=== PATIENT | male | born 1960 | race Caucasian/White ===

== ENCOUNTER 2021-05-24 04:35 | Inpatient (IN) | payer MEDICAID, SELFPAY ==
[2021-05-24] VITALS (8 sets, daily range): BP systolic 122–145; BP diastolic 61–75; PULSE 80–89; RESP 16–76; TEMP 36.4–37.2; O2SAT 94–98; BMI 26.9
--- NOTE | 2021-05-24 06:01 | PC.ADMIT ---
Addendum entered by My Stone R.N. 05/24/21 07:53: NOrepi has been stopped since 544, remains stable BP, Tele in place, Pt has c/o back pain. 12/07. Poor historian. NPO for swallow eval r/t previous CVA and speech difficulty. Unsure of home meds as Pt is using mail order pharmacy/blister pack. Original Note: [address] Admission Note:Pt arrived from EMS and settled into room 227, c/o back pain 12/07 BP stable 128/68 P-88 R-18 Verified emergency contact. Pt has slight tremor to R side and contracture to hand r/t previous CVA. Slight delay to speech/expressive aphasia. Norepi that Pt transferred with @ 0.3 mcg/kg/min stopped, as VSS currently. Skin check completed, bruising noted. The patient,Dionisio Nunn,60 y/o, was given written information regarding hospital policies, unit procedures and contact persons. Patient's smoking status: .
--- NOTE | 2021-05-24 07:16 | P.HP_ITS ---
History of Present Illness History of Present Illness Date Patient Seen: 05/24/21 Time Patient Seen: 06:15 Chief complaint: Seizure, direct admit from [facility] Narrative: Dionisio Nunn is a 60-year-old male resident of the [facility] who was transferred from [facility] in [place] for what was believed to be a severe sepsis and seizure. Patient is unable to give me any history of what brought him to [facility] but he was very clear about the course of action that led to why he was sent to this facility. Patient has a history of a stroke and upon reviewing medications that were preloaded into the EMR he also has hypertension, hyperlipidemia, depression and/or anxiety, probable seizure disorder and is anticoagulated on apixaban. Patient was unable to tell me if he has had a history of any surgeries. He is unable to tell me any new symptoms associated with landing in the hospital. When he arrived he was complaining of back pain. The only symptoms he was able to tell me were all chronic ones which included coughing so hard that he vomits, chronic urinary retention, and definitely not diarrhea it appears that he take stool softeners and has constipation issues. While at [facility] the patient was reportedly postictal and was adminis tered Keluisra. They placed a central line into the right IJ. The emergency room provider stated that the patient's blood pressure was normal when he arrived but then started to drop to a low systolic in the 70s. At that point he had received 3 L bolus of normal saline which he did not respond to. They started him on IV Levophed. Prior to the administration of Levophed his lactate was 9.0 and dropped to 1.2. They diagnosed him with a salmonella infection however they state they were not able to identify source, blood cultures are pending. At that time he was started on IV Zosyn and vancomycin. CT of the C-spine did not identify any acute fracture or malalignment did comment that there was multilevel intervertebral disc and facet joint degeneration. CT of the head without contrast reported old left posterior frontal infarction, old left frontal encephalomalacia extending to the corpus callosum. Did not identify any acute intracranial hemorrhage or infarction. The patient was urged requested for transfer to this facility of which I obliged. Temp was 98.4?, blood pressure 122/74, heart rate 88, respiratory rate 22, oxygen saturation of 98% on room air. Labs drawn at [facility] included a WBC of 9.0 RBC 3.97 hemoglobin 13.8 hematocrit 39.8 platelet count of a 145 sodium 133 potassium 3.5 chloride 93 CO2 24 glucose 199 BUN 7 creatinine 1.3 with a GFR of 44 albumin was 3.8 calcium 9.4 bilirubin 0.7 alk-phos 57 ALT 75 AST 98 urine toxicology screen was negative as well as his EtOH level UA was also negative for a UTI, COVID-19 PCR was negative. Patient History Medical History (Updated 05/24/21 @ 07:50 by LENARD Mccoy) Anxiety disorder Essential hypertension History of alcohol use History of CVA with residual deficit Hyperlipidemia Seizure disorder Surgical History (Updated 05/24/21 @ 07:50 by LENARD Mccoy) No history of major surgery within 1 month Family & Social History Family History (Updated 05/24/21 @ 07:52 by LENARD Mccoy) Mother Alcoholism and drug addiction in family Father Old age Tobacco & Substance use: 2-3 cigarettes per day. Patient denies active alcohol use at this time. Meds Home Medications and Allergies Home Medications Medication Instructions Recorded Confirmed Type atenolol 25 mg tablet mg 05/24/21 History atorvastatin 40 mg tablet mg 05/24/21 History buspirone 10 mg tablet 10 mg 05/24/21 History fluoxetine 10 mg capsule mg 05/24/21 History Allergies Allergy/AdvReac Type Severity Reaction Status Date / Time Penicillins Allergy Intermediate Rash Verified 05/24/21 05:57 Review of Systems Review of Systems ROS: Yes All systems reviewed with the patient and are negative except as otherwise documented Exam Vital Signs (past 8 hours): Temp was 98.4?, blood pressure 122/74, heart rate 88, respiratory rate 22, oxygen saturation of 98% on room air Narrative Exam Narrative: Gen: Alert, oriented, well-developed 60 y.o. 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 Speech slurred. Extremities: Right hand and wrist is contracted, negative Kimberli?s sign Psyche: normal mood and affect. Assessment & Plan Assessment & Plan narrative: Dionisio Nunn is accepted initially for transfer to our ICU. After reviewing the patient's med list it appears that he may have stopped using his psychotropic and seizure medications which may have triggered the seizure. He is currently changed over to inpatient status for further monitoring and resumption of his chronic medications. Attempt will be made to obtain old records from his PCP's office, Dr. Olga Cummins at [facility]. 1. Witnessed seizure acute, present on admission * Patient is ordered for both Keppra and his home dose of lamotrigine which is 200 mg p.o. b.i.d. * Patient will have seizure precautions in place * Case was discussed with the [facility] and it seems as though the patient may have discontinued the lamotrigine and his SSRIs, triggering the seizure. 2. History of a left-sided CVA with right-sided deficits, chronic, present on admission * Patient record indicates he takes atenolol 25 mg p.o. b.i.d. and lisinopril 5 mg p.o. daily. These will be resumed when he sustains a normotensive or hypertensive blood pressure * Patient is currently anticoagulated on apixaban, this should be resumed once it is verified 3. Anxiety/seizure disorder, presumed chronic * Patient's pharmacy record indicates he takes [id number] mg p.o. daily, fluoxetine 10 mg p.o. daily and lamotrigine 200 mg p.o. b.i.d. these medications will be resumed upon confirmation with his pharmacy and his PCP 4. Hypotension and sepsis presentation to the [facility] ED, appears to be resolved * It is now believed that the patient's initial presentation of hypotension and elevated lactate was due to the seizure rather than a bacterial infection. 4. Questionable recent history of alcohol withdrawal * Patient had been on a Librium course in 2019 VTE Prophylaxis: Wells risk score [0] Patient is currently anticoagulated on Apixaban. Patient is admitted to the inpatient service due to the severity of disease, risks of further disease progression and this stay is expected to exceed 2 midnights. FEN: IV fluids: NS at 150 ml/hour, diet: heart healthy, labs: CBC, C/BMP, liver enzymes, Mag, PT/INR Consultants None Dispo: Probable discharge to home Code status: Full code as discussed with the patient who identifies daughter as his her surrogate and POA. [X] I have utilized all available immediate resources to obtain, update, or review of the patient's current medications COVID-19 COVID-19 status: Negative Result date/Date tested (Pos, Neg/Pending): 05/24/21 Time Spent With Patient Critical Care time: I spent a total of [] minutes of critical care time on this patient's care today; this time is exclusive of procedural time. Scores Wells' Criteria for PE Clinical signs and symptoms of DVT: No PE is #1 Dx or equally likely: No Heart rate > 100: No Immobilization at least 3 days or surg in previous 4 weeks: No History of PE or DVT: No Hemoptysis: No Malignancy w/Treatment within 6 months or palliative: No Wells' PE Score total: 0 Quality VTE Deep Vein Thrombosis/Pulmonary Embolism Present on Admission: No MIPS - Admit I confirm the patient?s Advance Care Plan is present, Code status is documented, Surrogate decision maker is in patient?s record [If Yes, STOP here]: Yes MIPS - DC The patient has current or prior documentation of left ventricular ejection fraction (LVEF) less than 40%, or moderate or severely depressed left ventricular systolic function.: No
[2021-05-24 08:20] LABS: Lactate (Lactic Acid) 1.5 mmol/L (0.7-2.1)
[2021-05-24 08:21] LABS: BUN Creatinine Ratio 6.3 (6-22); Blood Urea Nitrogen 4 mg/dL (9-20); Calcium 8.5 mg/dL (8.4-10.2); Carbon Dioxide 25 mmol/L (22-32); Chloride 103 mmol/L (98-107); Estimated Glomerular Filt Rate > 60.0 mL/min (>60); Glucose 76 mg/dL (80-110); HEMOLYSIS 33 (0-50); Magnesium 1.3 mg/dL (1.6-2.3); Potassium 3.6 mmol/L (3.4-5.1); Sodium 134 mmol/L (137-145)
[2021-05-24 08:22] LABS: Alanine Aminotransferase 50 IU/L (<50); Albumin 3.8 g/dL (3.5-5.0); Albumin Globulin Ratio 1.7 (1.0-2.8); Alkaline Phosphatase 40 U/L (38-126); Aspartate Aminotransferase 79 IU/L (17-59); Bilirubin Unconjugated 0.9 mg/dL (0.0-1.1); Globulin 2.3 g/dL (1.7-4.1); HEMOLYSIS 30 (0-50); Total Protein 6.1 g/dL (6.3-8.2)
[2021-05-24 08:48] LABS: Add Manual Diff / Slide Review NO; Basophils Absolute Auto 0 /uL (0-100); Basophils Percent Auto 0.4 % (0-2); Eosinophils Absolute Auto 100 /uL (0-450); Eosinophils Percent Auto 1.3 % (2-4); Hematocrit 37.9 % (41-53); Hemoglobin 12.8 g/dL (13.5-17.5); Lymphocytes Absolute Auto 1300 /uL (1100-4500); Lymphocytes Percent Auto 25.7 % (25-40); Mean Corpuscular HGB Conc 33.8 % (30-36); Mean Corpuscular Hemoglobin 34.1 PG (26-34); Mean Corpuscular Volume 100.8 fL (80-100); Monocytes Absolute Auto 500 /uL (0-900); Monocytes Percent Auto 10.3 % (3-14); Neutrophils Absolute Auto 3100 /uL (1500-7000); Neutrophils Percent Auto 62.3 % (50-75); Platelet Count 102 X10^3/uL (150-400); Red Blood Cell Count 3.77 X10^6/uL (4.5-5.9); Red Cell Distribution Width 14.2 % (11.6-14.8)
[2021-05-24] MEDS: ACETAMINOPHEN 325 MG TABLET 975 MG PO (08:55)
[2021-05-24] MEDS: levETIRAcetam 250 MG TABLET 500 MG PO ×2 (08:55→20:44)
[2021-05-24 09:33] LABS: Creatine Kinase 165 U/L (55-170)
[2021-05-24 09:44] LABS: Troponin I 0.042 ng/mL (0.01-0.034)
[2021-05-24 09:48] LABS: CKMB % Relative Index 0.8 % (1.5-5.0); Creatine Kinase MB 1.27 ng/mL (<2.37)
[2021-05-24] MEDS: MAGNESIUM CHLORIDE 64 MG TABLET 128 MG PO ×2 (12:29→20:46)
--- NOTE | 2021-05-24 13:19 | PC.NURSE ---
1000- Updated Dr. Aguila of lab results. Mg of 1.3 and troponin 0.042. No new orders. 1300- Update given to Dr. Aguila: Pt is a current drinker. Consumes 6-8 beers a couple times a week per pt report. History and med rec completed based on records obtained from [facility] PCP. Requested clarification of orders for keppra BID since pt usually takes lamictal BID. Awaiting orders.
--- NOTE | 2021-05-24 15:15 | CM.DANOTE ---
Patient is a 60 yo male who was admitted on 05/24/21 for Seizure. Pt has [employer] and [employer] for insurance and his PCP is not listed. EMR was reviewed. Per MD, pt was a direct admit from [facility] for suspected seizure, sepsis and currently a poor historian. SW met bedside with pt and explained role and due to pt's medical conditions is difficult to understand at times but able to participate in discussion and alert and oriented. Pt confirms that he lives in [place] in an apt alone and has no other local family. Pt does have a HU CG and states he gets 109 hours a month which means his CG comes about 2-3 times a week to help with laundry, cleaning, cooking. Pt states he does not have her number as it's in his phone and his phone was left at home. Pt states he does not remember his fall but remembers waiting to catch public transportation as he typically takes the bus and next thing he remembers is waking up in the hospital. Pt denies any current needs and states he is feeling better but knows he will need a ride home at d/c and cannot remember his HU CM name but is agreeable to SW determining his HU CM assigned and if he has medicaid transportation benefits. SW called HU office and confirmed his HU CM is Delmy ([phone]) and she provided pt's HU CM name Miladys (sp?) [phone] and that pt or SW could call her at d/c to see if she is available to provide transport. Delmy just requests d/c summary be faxed to their office at d/c. SW called Medicaid transport and confirmed that pt has transportation benefits if needed at d/c. SW updated pt and provided him with his HU CG contact info. Pt very appreciative. Plan: SW to follow closely for d/c planning needs and possible PT eval to confirm safe plan of home with HU CG when medically stable. ZAYDA Morales Discharge Planning/Care Management CM Discharge Assessment Start: 05/24/21 15:12 Freq: Status: Active Protocol: Document 05/24/21 15:13 BF (Rec: 05/24/21 15:15 BF [id number]) Discharge Planning Assessment Assigned Branch Examiner ZAYDA Gordillo DPOA/Assigned Designee Name none Advance Directives? No Advance Directives on File No History Provided By Patient,Medical Record Has Patient been admitted in last 30 No days? Prior Living Arrangements Apartment/Condo Household Members none Type of transporation used prior to Medicaid Transport admit Independent with ADL's No Is patient alert and oriented? Yes Needs Assistance With Meal Prep,Managing Medications ,Home Chores / Shopping Caregiver for Another No Comment Has HU BOWIE at baseline Barriers to Discharge No Discharge Plan Home with Home Health Transportation Arrangement Medicaid taxi vs HU BOWIE Additional Comment Pending progress and possible PT eval Review Status In Process Please Provide Date Initial DC 05/24/21 Assessment Was Performed Next Review Type Continued Stay Review
--- NOTE | 2021-05-24 17:17 | PC.NURSE ---
Addendum entered by Jaclyn Polo R.N. 05/24/21 18:49: Pt continually neglects to call for help and resists assistance. Bed alarm on. OOB, heading for bathroom, assisted to toilet and then given privacy. Pt came out of the bathroom asking for a clean pull-up; IV hanging out and blood all over hands. Gauze with coban applied to IV site. Pt assisted to chair, where he was provided clean undergarments and the blood was washed off. Reiterated again that he needs to call for help. Bed alarm set. Original Note: SHIFT: Report received, care assumed 1530. Pt A&O. VSS. Pt has neuro deficits--disarthria, tremors of extremities, unsteady gait--but these are his baseline. No evidence of seizure activity at this time. Asked pt. whether he could have been missing doses of his Lamictal, causing his seizure. He states that he gets his meds shipped to him in blister packs and there's no way he could have misdosed. He believes that his blood pressure medication is causing his blood pressure to drop too low, and that's causing his falls. Pt asks to be disconnected so he can move about freely. Placed him on remote tele and paused SCD's; however, instructed him that he is still at-risk of falls and must call for assistance. He is unsteady on his feet and frequently forgets to call for help. Up to chair with standby assistance, chair alarm placed.
[2021-05-24] MEDS: LORazepam 1 MG TABLET PO (22:48)
--- NOTE | 2021-05-25 00:05 | PC.NURSE ---
Pt refused to keep cardiac cath lab technologist on while trying to sleep. States they are tugging on me and I can't fall asleep. Talked to Dr. Christine and she stated to put a note in and tell him the pitfalls of not having a cardiac cath lab technologist on. I explained to the pt the importance of the cardiac cath lab technologist and he still refused.
[2021-05-25 00:15] VITALS: BP 145/72; PULSE 90; RESP 16; TEMP 36.7; O2SAT 99
[2021-05-25 03:25] VITALS: BP 154/65; PULSE 87; RESP 22; TEMP 36.4; O2SAT 95
[2021-05-25] MEDS: LORazepam 1 MG TABLET PO (05:15)
[2021-05-25 06:00] VITALS: BP 154/65; PULSE 82; RESP 16
[2021-05-25 07:45] VITALS: BP 170/85; PULSE 106; RESP 19; TEMP 36.6; O2SAT 94
[2021-05-25] MEDS: levETIRAcetam 250 MG TABLET 500 MG PO (09:44)
[2021-05-25 10:28] LABS: Add Manual Diff / Slide Review NO; Basophils Absolute Auto 0 /uL (0-100); Basophils Percent Auto 0.5 % (0-2); Eosinophils Absolute Auto 100 /uL (0-450); Eosinophils Percent Auto 1.2 % (2-4); Hematocrit 37.7 % (41-53); Lymphocytes Absolute Auto 1600 /uL (1100-4500); Lymphocytes Percent Auto 19.5 % (25-40); Mean Corpuscular HGB Conc 34.5 % (30-36); Mean Corpuscular Hemoglobin 34.6 PG (26-34); Mean Corpuscular Volume 100.2 fL (80-100); Monocytes Absolute Auto 800 /uL (0-900); Monocytes Percent Auto 9.5 % (3-14); Neutrophils Absolute Auto 5600 /uL (1500-7000); Neutrophils Percent Auto 69.3 % (50-75); Platelet Count 103 X10^3/uL (150-400); Red Blood Cell Count 3.77 X10^6/uL (4.5-5.9); Red Cell Distribution Width 13.9 % (11.6-14.8); White Blood Cell Count 8.1 X10^3/uL (4.5-11.0)
[2021-05-25 10:39] LABS: BUN Creatinine Ratio 8.6 (6-22); Blood Urea Nitrogen 6 mg/dL (9-20); Calcium 9.1 mg/dL (8.4-10.2); Carbon Dioxide 21 mmol/L (22-32); Chloride 100 mmol/L (98-107); Estimated Glomerular Filt Rate > 60.0 mL/min (>60); Glucose 90 mg/dL (80-110); HEMOLYSIS < 15 (0-50); Potassium 3.5 mmol/L (3.4-5.1); Sodium 135 mmol/L (137-145)
[2021-05-25 10:51] LABS: Troponin I 0.025 ng/mL (0.01-0.034)
--- NOTE | 2021-05-25 10:52 | PM.DS.1 ---
History of Present Illness History of Present Illness Date Patient Seen: 05/25/21 Chief complaint: Seizure, direct admit from [facility] [place] Narrative: Dionisio Nunn is a 60-year-old male resident of the [facility] who was transferred from [facility] in [place] for what was believed to be a severe sepsis and seizure.? Patient is unable to give me any history of what brought him to [facility] but he was very clear about the course of action that led to why he was sent to this facility.? Patient has a history of a stroke and upon reviewing medications that were preloaded into the EMR he also has hypertension, hyperlipidemia, depression and/or anxiety, probable seizure disorder and is anticoagulated on apixaban.? Patient was unable to tell me if he has had a history of any surgeries.? He is unable to tell me any new symptoms associated with landing in the hospital.? When he arrived he was complaining of back pain.? The only symptoms he was able to tell me were all chronic ones which included coughing so hard that he vomits, chronic urinary retention, and definitely not diarrhea it appears that he take stool softeners and has constipation issues. While at [facility] the patient was reportedly postictal and was administered Keppra. They placed a central line into the right IJ.? The emergency room provider stated that the patient's blood pressure was normal when he arrived but then started to drop to a low systolic in the 70s.? At that point he had received 3 L bolus of normal saline which he did not respond to.? They started him on IV Levophed.? Prior to the administration of Levophed his lactate was 9.0 and dropped to 1.2.? They diagnosed him with a salmonella infection however they state they were not able to identify source, blood cultures are pending.? At that time he was started on IV Zosyn and vancomycin.? CT of the C-spine did not identify any acute fracture or malalignment did comment that there was multilevel intervertebral disc and facet joint degeneration.? CT of the head without contrast reported old left posterior frontal infarction, old left frontal encephalomalacia extending to the corpus callosum.? Did not identify any acute intracranial hemorrhage or infarction.? The patient was urged requested for transfer to this facility of which I obliged. Temp was 98.4?, blood pressure 122/74, heart rate 88, respiratory rate 22, oxygen saturation of 98% on room air.? Labs drawn at [facility] included a WBC of 9.0 RBC 3.97 hemoglobin 13.8 hematocrit 39.8 platelet count of a 145 sodium 133 potassium 3.5 chloride 93 CO2 24 glucose 199 BUN 7 creatinine 1.3 with a GFR of 44 albumin was 3.8 calcium 9.4 bilirubin 0.7 alk-phos 57 ALT 75 AST 98 urine toxicology screen was negative as well as his EtOH level UA was also negative for a UTI, COVID-19 PCR was negative.? Discharge Providers Provider Date of admission: 05/24/21 04:35 Discharge Date: 05/25/21 Primary care physician: Robbie Cummins Consults: None Discharge provider: Kamini Aguila MD Summary Hospital Course Discharge Diagnosis: 1. Seizure 2. History of CVA with residual deficit 3. Essential Hypertension 4. Hyperlipidiemia 5. History of Etoh Abuse 6. Anxiety disorder Hospital Course: The Patient was transferred from [facility] following a witnessed seizure. Patient was started on Keppra and had no further seizures. He is currently on lamictal for mood disorder. He has a history of alcohol withdrawal seizures and febrile seizures as a child. The patient was hypotensive and UGH. He was given 30 cc/kg of IVF, started on IV Vanco and Zosyn. He was started on Levophed which was rapidly weaned off upon admission. His medical records state he had a salmonella infection, but no micro or blood cultures confirm salmonella. His 05/23 cultures at [facility] [place] were negative, his blood cultures here are negative as well. His Blood pressure improved and he was did not require pressors. His initial lactate was 9,1, but subsequent was 1.2. His troponin was negative at [facility] [place], and initial troponin was .042 here and subsequently .025. The patient had no complaints of chest pain. He was very anxious to discharge. The patient reports drinking about a six pack of beer per week. His WBC was 5.0 on admission and subsequently 8.1, Initial LFTs were AST 79, ALT 50. Patient was awake, alert, without complaints. He was deemed appropriate for discharge home. I spoke to his PCP, Dr. Olga Cummins. He will follow up with her next week. Patient had a Head CT AT [facility] [place], it revealed no intracranial hemorrhage or infarction, no acute intracranial process. CT of cervical spine revealed no acute fracutre or malalighnement, multilevel intervertebral disc and facet degeneration noted. CT/ABD/Pelvis done but results not sent. Status at Discharge Cognitive/behavioral status at discharge: at baseline, oriented Functional status at discharge: independent ambulation Overall status at discharge: patient is progressing back to baseline Exam Vital Signs (past 8 hours): - 05/25/21 03:25 05/25/21 06:00 05/25/21 07:45 Temperature 97.6 F 97.9 F Pulse Rate 87 82 106 H Respiratory Rate 22 16 19 Blood Pressure 154/65 H 154/65 H 170/85 H Pulse Oximetry 95 94 Oxygen Delivery Method Room Air Oxygen Flow Rate 0 Narrative Exam Narrative: Awake and alert, severe dysarthria which is his baseline HENMT Other: right temporal bruising from fall from seizure Resp Other: Lungs: clear to auscultation Cardio Other: RRR nl Sl S2 GI Other: Abd: soft/ non tender/ nondistended Extrem Other: bruising along the right leg Objective Labs Result Diagrams: 05/25/21 09:20 05/24/21 07:30 Labs: Laboratory Results - last 24 hr 05/25/21 09:20 WBC 8.1 D RBC 3.77 L Hgb 13.0 L Hct 37.7 L MCV 100.2 H MCH 34.6 H MCHC 34.5 RDW 13.9 Plt Count 103 L Neut % (Auto) 69.3 Lymph % (Auto) 19.5 L Wilkes % (Auto) 9.5 Eos % (Auto) 1.2 L Baso % (Auto) 0.5 Neut # (Auto) 5600 Lymph # (Auto) 1600 Wilkes # (Auto) 800 Eos # (Auto) 100 Baso # (Auto) 0 PFSH Medical History Alcohol abuse Alcohol withdrawal syndrome, with delirium Anxiety Anxiety disorder Aphasia Apical mural thrombus Arrhythmia Bilateral pulmonary embolism Bipolar depression Chronic back pain Chronic neck pain Colonic polyp Dilated cardiomyopathy DVT (deep venous thrombosis) Essential hypertension GERD (gastroesophageal reflux disease) H/O ischemic left MCA stroke History of alcohol use History of CVA with residual deficit HTN (hypertension) Hyperlipidemia Insomnia Ischemic cardiomyopathy Lactic acidosis Major depression in remission [place] (myocardial infarction) Peripheral blood vessel disorder Peripheral edema Reactive airway disease Seizure disorder Smoking Surgical History (Updated 05/24/21 @ 11:31 by Momo L Smiley, RN) AICD (automatic cardioverter/defibrillator) present History of coronary artery stent placement No history of major surgery within 1 month Family History (Updated 05/24/21 @ 07:52 by LENARD Mccoy) Mother Alcoholism and drug addiction in family Father Old age Social History household members: none Smoking Status: Current every day smoker alcohol intake: current Discharge Assessment & Plan Assessment and Plan Assessment: 1. Seizure 2. hypertension 3. Stroke with residual deficit 4.Bipolar affective disorder 5.Apical mural thrombus 6. tobacco dependence 7. DVT 8 . Bilateral PE 9. History of Alcohol Withdrawal seizure 10 history of stent placement Plan of Treatment: Discharge home. F/U with Dr. Cummins next week Discharge Plan Discharge Plan Patient Disposition: Home Discharge orders & Medications Prescriptions: Continued atenolol 25 mg tablet 25 mg PO BID RF: 0 atorvastatin 40 mg tablet 40 mg PO DAILY RF: 0 fluoxetine 10 mg capsule 10 mg PO DAILY RF: 0 buspirone 10 mg tablet 10 mg PO TID RF: 0 lamotrigine 200 mg tablet 200 mg PO BID RF: 0 cetirizine 10 mg tablet 10 mg PO DAILY RF: 0 trazodone 100 mg tablet 200 mg PO BEDTIME RF: 0 omeprazole 20 mg capsule,delayed release(DR/EC) 20 mg PO 0600 RF: 0 lisinopril 5 mg tablet 5 mg PO DAILY RF: 0 albuterol 90 mcg/actuation Aerosol 180 mcg INHALATION Q4HR PRN (Reason: Wheezing) RF: 0 polyethylene glycol 3350 17 gram/dose powder 17 g PO DAILY PRN (Reason: Constipation) RF: 0 Vitamin Plus Low Iron 27 mg iron- 1 mg tablet 1 tab PO DAILY RF: 0 Eliquis 5 mg tablet 5 mg PO BID RF: 0 Discontinued chlordiazepoxide HCl [Librium] 25 mg Capsule 25 mg PO TID PRN (Reason: Anxiety) RF: 0 Medication counseling provided by Pharmacist: No Discharge Health Status Care Plan Goals: F/u with Dr. Cummins in one week Multidrug resistant organism: No MDRO Diet/Activity/Treatments Diet: Low-fat and Low-sodium Activity: as toleraterd Skin/Wound/Dressing Care Report to your healthcare provider any signs of infection, such as:: chills, fever Quality VTE Deep Vein Thrombosis/Pulmonary Embolism Present on Admission: No
--- NOTE | 2021-05-25 10:53 | PC.NURSE ---
Addendum entered by Momo Reis R.N. 05/25/21 13:58: Pt provided dc education, written and verbal. Reviewed dx, medications regimens, next dose due. Reviewed when to seek emergency medical treatment. Reviewed smoking and alcohol cessation. Reviewed ways to prevent falls. Reviewed risk for seizure. Instructed pt that he will be received a phone call from Dr. Cummins' office to arrange a f/u appt. He verbalizes understanding. PIV absent as well as telemetry monitoring as per previous shift documentation/pt refusal. Pt dressed himself and independently transferred himself to a w/c with all belongings in hand. Pt was escorted to arranged transportation by button breaker in no distress. Addendum entered by Momo Reis R.N. 05/25/21 11:28: Dr. Aguila rounded. Will discharge pt to home. Gave VORB to dc EKG that was just ordered due to troponin being normal. Original Note: 0730- Spoke with Dr. Aguila. Reported pt is refusing telemetry monitoring. Reported pt without IV access, staff unable to establish IV access despite multiple attempts. Reported unable to collect labs from this AM as well as repeat troponin ordered yesterday despite multiple attempts. Dr. Aguila states she would like labs if pt is agreeable to add'l attempt. Dr. Aguila acknowledges pt's refusal of telemetry. 0815- Unable to obtain labs despite 2 attempts by this RN. Notified lab of inability to obtain blood, requested phlebotomy to attempt. Dr. Aguila rounded and saw pt at bedside. Discussed plan of care with pt. Assessed pt together. Reported pt concerns of getting home. Discussed seizure medication. Reported elevated BP 170/85. Reported only routine med ordered is keppra and pt normally takes lamictal for seizure disorder. 1020- Spoke with case mgmt. Pt is anxious to get home since he has cats and nobody to care for him. He is worried about transportation home since he does not drive or have money to pay a cab. He is impulsive but asking appropriate questions about plan of care.
--- NOTE | 2021-05-25 12:22 | CM.DPNOTE ---
Faxed and followed up with phone call to [facility] Medicaid Transport per Renetta for 1330 transport. Spoke to Shemar and he said earliest picked edge sewing machine operator would be 1400 from [facility]. I let the nurse know, and she was fine with this time. I also let Renetta know. Bridgette Valente CM Asst.
== END 2021-05-25 14:00 | disposition home or self-care (01) | DRG 101 ==
PROVIDERS: Internal Medicine; Nurse Practitioner Family; Admitting Provider Nurse Practitioner Family; Referring Provider Nurse Practitioner Family; Visit Provider Nurse Practitioner Family
DX: G40.909 Epilepsy, unspecified, not intractable, without status epilepticus (principal); I69.398 Other sequelae of cerebral infarction; M24.541 Contracture, right hand; F17.210 Nicotine dependence, cigarettes, uncomplicated; I10 Essential (primary) hypertension; E78.5 Hyperlipidemia, unspecified; F31.9 Bipolar disorder, unspecified; F41.9 Anxiety disorder, unspecified; K21.9 Gastro-esophageal reflux disease without esophagitis; Z79.01 Long term (current) use of anticoagulants; Z20.822 Contact with and (suspected) exposure to COVID-19
CPT/HCPCS: 36415; 80048; 80076; 82550; 82553; 83605; 83735; 84484; 85025; 87040; 87797; 93005; 94762

== ENCOUNTER 2022-12-17 16:13 | Inpatient (IN) | payer MEDICAID, OTHER, SELFPAY ==
[2021-05-24 05:50] VITALS: BMI 26.9
[2022-12-17] VITALS (80 sets, daily range): BP systolic 59–131; BP diastolic 40–75; PULSE 96–125; RESP 12–36; TEMP 36.9; O2SAT 87–100; BMI 22.6
--- NOTE | 2022-12-17 16:18 | DI.CT.S_ITS ---
PROCEDURE: CT HEAD/BRAIN WO CON INDICATIONS: falls TECHNIQUE: Noncontrast 4.5 mm thick angled axial sections acquired from the foramen magnum to the vertex, with coronal and sagittal reformats. For radiation dose reduction, the following was used: automated exposure control, adjustment of mA and/or kV according to patient size. COMPARISON: None. FINDINGS: Image quality: Degraded by motion artifact. CSF spaces: Basal cisterns are patent. No extra-axial fluid collections. The ventricles are symmetric in size and shape. Brain: No intracranial bleeds or masses. There is a small subacute versus chronic left posterolateral frontal lobe infarct. There is cerebral volume loss for age, with resultant ventricular and sulcal prominence. There are periventricular and deep white matter chronic small vessel ischemic changes. There is intracranial internal carotid artery atherosclerosis. Skull and face: Calvarium and visualized facial bones appear intact, without suspicious lesions. Sinuses: Visualized sinuses and mastoids are clear. IMPRESSION: 1. No acute intracranial abnormality. 2. Small subacute versus chronic left frontal lobe infarct. Dictated by: Susie Leal M.D. on 12/17/2022 at 16:28 Approved by: Susie Leal M.D. on 12/17/2022 at 16:29
--- NOTE | 2022-12-17 16:19 | DI.RAD.S_ITS ---
PROCEDURE: XR CHEST 1V INDICATIONS: weakness TECHNIQUE: One view of the chest was acquired. COMPARISON: None. FINDINGS: Surgical changes and devices: Left-sided pacer. Right-sided central venous catheter. Lungs and pleura: Lungs are clear. No pleural effusions or pneumothorax. Mediastinum: Mediastinal contours appear normal. Heart size is normal. 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 No suspicious bony lesions. Overlying soft tissues appear unremarkable. IMPRESSION: No acute process. Dictated by: Susie Leal M.D. on 12/17/2022 at 16:27 Approved by: Susie Leal M.D. on 12/17/2022 at 16:28
--- NOTE | 2022-12-17 17:16 | ED.AMS ---
HPI - Altered Mental Status General Chief Complaint: Altered Mental Status Stated Complaint: ETOH Time Seen by Provider: 12/17/22 16:18 Source: patient and family Mode of arrival: Wheelchair History of Present Illness HPI narrative: 62-year-old male smoker and heavy drinker, upwards of 2/5 per week with history of withdrawals and seizures as well as prior stroke presents with significant other and a chief complaint of multiple falls and generalized weakness for the past few days. There is very little additional to the story, he is had no runny nose, sore throat or cough. He has had no chest pain, nausea, vomiting or diarrhea. His last drink was sometime earlier today. He has pressured and garbled speech at baseline Related Data Home Medications Medication Instructions Recorded Confirmed albuterol 90 mcg/actuation aerosol 180 mcg inhalation Q4HR PRN 05/24/21 05/24/21 inhaler Wheezing apixaban 5 mg tablet (Eliquis) 5 mg PO BID 05/24/21 05/24/21 atenolol 25 mg tablet 25 mg PO BID 05/24/21 05/24/21 atorvastatin 40 mg tablet 40 mg PO DAILY 05/24/21 12/17/22 buspirone 10 mg tablet 10 mg PO TID 05/24/21 12/17/22 cetirizine 10 mg tablet 10 mg PO DAILY 05/24/21 12/17/22 fluoxetine 10 mg capsule 10 mg PO DAILY 05/24/21 12/17/22 lamotrigine 200 mg tablet 200 mg PO BID 05/24/21 12/17/22 lisinopril 5 mg tablet 5 mg PO DAILY 05/24/21 12/17/22 omeprazole 20 mg capsule,delayed 20 mg PO 0600 05/24/21 12/17/22 release polyethylene glycol 3350 17 17 g PO DAILY PRN Constipation 05/24/21 05/24/21 gram/dose oral powder vitamin with calcium 1 tab PO DAILY 05/24/21 12/17/22 no.72-iron 27 mg-folic acid 1 mg tablet ( Vitamins Plus Low Iron) trazodone 100 mg tablet 200 mg PO BEDTIME 05/24/21 12/17/22 Allergies Allergy/AdvReac Type Severity Reaction Status Date / Time Penicillins Allergy Intermediate Rash Verified 12/17/22 16:40 latex Allergy ITCHING Verified 12/17/22 16:40 Review of Systems Review of Systems Narrative: GENERAL: see HPI HEENT: Denies sinus pain, ear pain, sore throat, difficulty swallowing, dizziness. RESPIRATORY: Denies dyspnea, cough, wheezing, hemoptysis, sputum. CARDIOVASCULAR: Denies chest pain, palpitations, orthopnea, edema, GASTROINTESTINAL: Denies nausea, vomiting, abdominal pain, diarrhea, constipation, melena. : Denies dysuria, frequency, incontinence, hematuria, urinary retention. MUSCULOSKELETAL: denies weakness, joint pain, or bony pain SKIN: Denies rash, skin lesions, or other NEUROLOGIC: see HPI PSYCHIATRIC: No concerning psychosocial issues. Patient History Medical History Alcohol abuse Alcohol withdrawal syndrome, with delirium Anxiety Anxiety disorder Aphasia Apical mural thrombus Arrhythmia Bilateral pulmonary embolism Bipolar depression Chronic back pain Chronic neck pain Colonic polyp Dilated cardiomyopathy DVT (deep venous thrombosis) Essential hypertension GERD (gastroesophageal reflux disease) H/O ischemic left MCA stroke History of alcohol use History of CVA with residual deficit HTN (hypertension) Hyperlipidemia Insomnia Ischemic cardiomyopathy Lactic acidosis Major depression in remission Old VT (myocardial infarction) Peripheral blood vessel disorder Peripheral edema Reactive airway disease Seizure disorder Smoking Surgical History AICD (automatic cardioverter/defibrillator) present History of coronary artery stent placement No history of major surgery within 1 month Family History Mother Alcoholism and drug addiction in family Father Old age Social History household members: none Smoking Status: Current every day smoker alcohol intake: current Smoking Status: Current every day smoker alcohol intake frequency: 3 or more drinks per day Alcohol type: hard liquor Substance Use Type: does not use Exam Narrative Exam Narrative: GENERAL: [62] year old patient appears older than stated age. evidence of chronic illness, pressured speech is at baseline per family at the bedside, require significant assistance due to generalized weakness to get him in bed, GCS 15 HEAD: Atraumatic. Normocephalic. EYES: Pupils equal round and reactive. Extraocular motions intact. No scleral icterus. No injection or drainage. ENT: dry mucous membranesNose without bleeding, purulent drainage. Throat without erythema, tonsillar hypertrophy or exudate. Airway patent. NECK: Trachea midline. Non tender CARDIOVASCULAR: Regular rate and rhythm without murmurs, gallops, or rubs. RESPIRATORY: Clear to auscultation. Breath sounds equal bilaterally. No wheezes, rales, or rhonchi. GASTROINTESTINAL: Abdomen soft, non-tender, nondistended. EXTREMITIES: No edema or joint tenderness. BACK: Nontender without deformity or crepitance. No flank tenderness. NEURO: AOx3. SKIN: No rash or erythema of visible areas Initial Vital Signs Initial Vital Signs: Vital Signs Pulse Oximetry 87 L 12/17/22 16:17 Course Orders Ordered: ED Orders 12/18/22 04:16 Basic Metabolic Panel Routine Complete Blood Count AUTO DIFF Routine Magnesium Routine Acetaminophen (Acetaminophen 325 Mg Tablet) 650 mg PO Q6H PRN PRN Reason: Fever/Mild Pain (1-3) Apixaban (Apixaban 5 Mg Tablet) 5 mg PO BID [facility] Last Admin: 12/18/22 08:16 Dose: 5 mg Documented By: KYLER Aspirin (Aspirin Ec 81 Mg Tablet) 81 mg PO DAILY [facility] Last Admin: 12/18/22 08:16 Dose: 81 mg Documented By: KYLER Atorvastatin Calcium (Atorvastatin 20 Mg Tablet) 40 mg PO BEDTIME [facility] Last Admin: 12/17/22 22:20 Dose: 40 mg Documented By: JAMIE Buspirone HCl (Buspirone 5 Mg Tablet) 10 mg PO TID [facility] Last Admin: 12/18/22 08:16 Dose: 10 mg Documented By: KYLER Chlordiazepoxide HCl (Chlordiazepoxide 25 Mg Capsule) 50 mg PO Q8H [facility] Fluoxetine HCl (Fluoxetine 10 Mg Capsule) 10 mg PO DAILY [facility] Last Admin: 12/18/22 08:16 Dose: 10 mg Documented By: KYLER Folic Acid (Folic Acid 1 Mg Tablet) 1 mg PO DAILY [facility] Last Admin: 12/18/22 08:16 Dose: 1 mg Documented By: KYLER Lactated Ringer's (Lactated Ringers) 1,000 mls @ 100 mls/hr IV CONT [facility] Last Admin: 12/18/22 07:51 Dose: 100 mls/hr Documented By: Infusion: 12/18/22 07:51 Dose: 100 mls/hr Documented By: Admin: 12/17/22 22:15 Dose: 100 mls/hr Documented By: JAMIE Meropenem 500 mg/ Sodium (Chloride) 100 mls @ 200 mls/hr IV Q8H [facility] Last Admin: 12/18/22 06:48 Dose: 200 mls/hr Documented By: Infusion: 12/18/22 00:36 Dose: 0 mls/hr Documented By: Admin: 12/17/22 23:59 Dose: 200 mls/hr Documented By: Metronidazole (Flagyl) 500 mg in 100 mls @ 100 mls/hr IV Q8H [facility] Last Admin: 12/18/22 06:12 Dose: 100 mls/hr Documented By: Infusion: 12/18/22 01:00 Dose: 0 mls/hr Documented By: Admin: 12/17/22 23:20 Dose: 100 mls/hr Documented By: Thiamine HCl 500 mg/ Sodium (Chloride) 105 mls @ 420 mls/hr IV TID [facility] Last Admin: 12/18/22 08:15 Dose: 420 mls/hr Documented By: Admin: 12/18/22 00:00 Dose: Not Given Documented By: Lamotrigine (Lamotrigine 100 Mg Tablet) 200 mg PO BID [facility] Last Admin: 12/18/22 08:16 Dose: 200 mg Documented By: KYLER Lorazepam (Lorazepam 2 Mg/Ml Inj) 0 mg IV CIWAPRN PRN; Protocol PRN Reason: Alcohol Withdrawal Last Admin: 12/18/22 09:13 Dose: 2 mg Documented By: Admin: 12/18/22 06:05 Dose: 1 mg Documented By: Admin: 12/18/22 00:23 Dose: 1 mg Documented By: Lorazepam (Lorazepam 1 Mg Tablet) 0 mg PO CIWAPRN PRN; Protocol PRN Reason: Alcohol Withdrawal Multivitamins (Multivitamin 1 Tablet) 1 tab PO DAILY [facility] Last Admin: 12/18/22 08:16 Dose: 1 tab Documented By: KYLER Naloxone HCl (Naloxone 0.4 Mg/Ml Vial) 0.2 mg IV Q2MIN PRN PRN Reason: Opiate Reversal Ondansetron HCl (Ondansetron 4 Mg/2 Ml Inj) 4 mg IV Q8HR PRN PRN Reason: Nausea And Vomiting Last Admin: 12/18/22 03:02 Dose: 4 mg Documented By: Potassium Chloride (Potassium Chloride 20 Meq Tab) 40 meq PO Q6H [facility] Stop: 12/18/22 15:01 Last Admin: 12/18/22 11:22 Dose: 40 meq Documented By: KYLER Discontinued Medications Chlordiazepoxide HCl (Chlordiazepoxide 25 Mg Capsule) 50 mg PO Q8H [facility] Last Admin: 12/18/22 11:21 Dose: 50 mg Documented By: KYLER Sodium Chloride 9 ml/ (Epinephrine HCl 0.1 mg) 0 ml IV NOW ONE Stop: 12/17/22 16:33 Last Admin: 12/17/22 18:56 Dose: Not Given Documented By: AT Enoxaparin Sodium (Enoxaparin 40 Mg/0.4 Ml Syringe) 40 mg SUBCUT DAILY [facility] Sodium Chloride (Normal Saline 0.9%) 1,000 mls @ 1,000 mls/hr IV BOLUS ONE Stop: 12/17/22 17:17 Last Infusion: 12/17/22 18:56 Dose: 0 mls/hr Documented By: Admin: 12/17/22 17:32 Dose: 1,000 mls/hr Documented By: AT Thiamine HCl 400 mg/ Sodium (Chloride) 104 mls @ 416 mls/hr IV NOW ONE Stop: 12/17/22 16:19 Last Infusion: 12/17/22 18:25 Dose: 0 mls/hr Documented By: Admin: 12/17/22 17:44 Dose: 416 mls/hr Documented By: AT Ceftriaxone Sodium 2,000 mg/ (Sodium Chloride) 100 mls @ 200 mls/hr IV NOW ONE Stop: 12/17/22 16:33 Last Infusion: 12/17/22 18:50 Dose: 0 mls/hr Documented By: Admin: 12/17/22 17:55 Dose: 200 mls/hr Documented By: AT Sodium Chloride (Normal Saline 0.9%) 2,150.04 mls @ 716.68 mls/hr 30 ml/kg infuse over 3 hr (2150.04 ml) IV NOW ONE Stop: 12/17/22 21:04 Last Infusion: 12/17/22 21:31 Dose: 0 mls/hr Documented By: Infusion: 12/17/22 21:29 Dose: 0 mls/hr Documented By: Admin: 12/17/22 18:54 Dose: 716.68 mls/hr Documented By: AT Magnesium Sulfate (Magnesium Sulfate) 2 gm in 50 mls @ 25 mls/hr IV NOW ONE Stop: 12/17/22 22:44 Last Admin: 12/17/22 22:16 Dose: 25 mls/hr Documented By: RL Co-signed By: EDGARD Magnesium Sulfate (Magnesium Sulfate) 2 gm in 50 mls @ 25 mls/hr IV NOW ONE Stop: 12/18/22 07:56 Last Admin: 12/18/22 07:25 Dose: 25 mls/hr Documented By: KYLER Co-signed By: RUCHI Vital Signs Vital signs: Vital Signs - 8 hr 12/17/22 16:37 12/17/22 16:17 12/17/22 16:19 Temperature 98.4 F Pulse Rate 104 H Respiratory Rate 22 Blood Pressure 67/44 L 68/44 L Pulse Oximetry 95 87 L Oxygen Delivery Method Room Air 12/17/22 16:19 12/17/22 16:20 12/17/22 16:20 Temperature Pulse Rate 108 H 108 H Respiratory Rate 23 Blood Pressure 78/49 L Pulse Oximetry 97 97 Oxygen Delivery Method 12/17/22 16:25 12/17/22 16:29 12/17/22 16:29 Temperature Pulse Rate 103 H 104 H Respiratory Rate 19 17 Blood Pressure 89/58 L Pulse Oximetry 98 88 L Oxygen Delivery Method 12/17/22 16:30 12/17/22 16:30 12/17/22 16:35 Temperature Pulse Rate 103 H 107 H Respiratory Rate 16 23 Blood Pressure 89/58 L Pulse Oximetry 97 98 Oxygen Delivery Method 12/17/22 16:40 12/17/22 16:40 12/17/22 16:45 Temperature Pulse Rate 103 H Respiratory Rate 16 Blood Pressure 122/72 125/72 Pulse Oximetry Oxygen Delivery Method 12/17/22 16:45 Temperature Pulse Rate 104 H Respiratory Rate 18 Blood Pressure Pulse Oximetry Oxygen Delivery Method MDM - Altered Mental Status Lab Data 12/18/22 04:16 12/18/22 04:16 Labs: Lab Results 12/17/22 12/17/22 12/17/22 Range/Units 17:32 17:32 17:32 WBC 3.9 L (4.5-11.0) X10^3/uL RBC 3.85 L (4.5-5.9) X10^6/uL Hgb 13.1 L (13.5-17.5) g/dL Hct 38.6 L (41-53) % MCV 100.1 H (80-100) fL MCH 34.0 (26-34) PG MCHC 34.0 (30-36) % RDW 14.4 (11.6-14.8) % Plt Count 276 (150-400) X10^3/uL Neut % (Auto) 31.0 L (50-75) % Lymph % (Auto) 55.7 H (25-40) % [place] % (Auto) 9.5 (3-14) % Eos % (Auto) 2.9 (2-4) % Baso % (Auto) 0.9 (0-2) % Neut # (Auto) 1200 L (2099-2439) /uL Lymph # (Auto) 2200 (8744-3064) /uL [place] # (Auto) 400 (0-900) /uL Eos # (Auto) 100 (0-450) /uL Baso # (Auto) 0 (0-100) /uL PT 10.7 (10.1-12.7) SECONDS INR 0.9 (0.9-1.3) Sodium 142 (137-145) mmol/L Potassium 3.3 L (3.4-5.1) mmol/L Chloride 101 (98-107) mmol/L Carbon Dioxide 27 (22-32) mmol/L BUN 4 L (9-20) mg/dL Creatinine 0.63 L (0.66-1.25) mg/dL Estimated GFR > 60 (>60) mL/min BUN/Creatinine Ratio 6.3 (6-22) Glucose 156 H (80-110) mg/dL Lactate (0.7-2.1) mmol/L Calcium 8.3 L (8.4-10.2) mg/dL Magnesium 1.5 L (1.6-2.3) mg/dL Total Bilirubin 0.3 (0.2-1.3) mg/dL AST 70 H (17-59) IU/L ALT 36 (<50) IU/L Alkaline Phosphatase 97 (38-126) U/L Total Creatine Kinase 124 (55-170) U/L CK-MB (CK-2) 1.49 (<2.37) ng/mL CK-MB (CK-2) Rel Index 1.2 L (1.5-5.0) % Troponin I 0.021 (0.01-0.034) ng/mL Total Protein 6.5 (6.3-8.2) g/dL Albumin 4.0 (3.5-5.0) g/dL Globulin 2.5 (1.7-4.1) g/dL Albumin/Globulin Ratio 1.6 (1.0-2.8) Urine RBC (0-5/HPF) Urine WBC (0-5/HPF) Ur Squamous Epith Cells (0-5/HPF) Urine Bacteria (None) Hyaline Casts (None) Ur Culture Indicated? Salicylates < 1.0 (<20) mg/dL U Opiates 300ng/mL cut (Negative) Ur Oxycodone Screen (Negative) Urine Methadone Screen (Negative) Acetaminophen < 10 (10-30) ug/mL Ur Barbiturates Screen (Negative) U Tricyclic Antidepress (Negative) Ur Phencyclidine Scrn (Negative) Ur Amphetamines Screen (Negative) U Methamphetamines Scrn (Negative) Ur MDMA Scrn (Ecstasy) (Negative) U Benzodiazepines Scrn (Negative) Urine Cocaine Screen (Negative) U Marijuana (THC) Screen (Negative) Ethyl Alcohol 407 H* ( - 10) mg/dL Ketones (<0.27) mmol/L SARS-CoV-2 (PCR) (Negative) 12/17/22 12/17/22 12/17/22 Range/Units 17:32 17:50 18:58 WBC (4.5-11.0) X10^3/uL RBC (4.5-5.9) X10^6/uL Hgb (13.5-17.5) g/dL Hct (41-53) % MCV (80-100) fL MCH (26-34) PG MCHC (30-36) % RDW (11.6-14.8) % Plt Count (150-400) X10^3/uL Neut % (Auto) (50-75) % Lymph % (Auto) (25-40) % [place] % (Auto) (3-14) % Eos % (Auto) (2-4) % Baso % (Auto) (0-2) % Neut # (Auto) (5984-0861) /uL Lymph # (Auto) (9202-2976) /uL [place] # (Auto) (0-900) /uL Eos # (Auto) (0-450) /uL Baso # (Auto) (0-100) /uL PT (10.1-12.7) SECONDS INR (0.9-1.3) Sodium (137-145) mmol/L Potassium (3.4-5.1) mmol/L Chloride (98-107) mmol/L Carbon Dioxide (22-32) mmol/L BUN (9-20) mg/dL Creatinine (0.66-1.25) mg/dL Estimated GFR (>60) mL/min BUN/Creatinine Ratio (6-22) Glucose (80-110) mg/dL Lactate 5.2 H* (0.7-2.1) mmol/L Calcium (8.4-10.2) mg/dL Magnesium (1.6-2.3) mg/dL Total Bilirubin (0.2-1.3) mg/dL AST (17-59) IU/L ALT (<50) IU/L Alkaline Phosphatase (38-126) U/L Total Creatine Kinase (55-170) U/L CK-MB (CK-2) (<2.37) ng/mL CK-MB (CK-2) Rel Index (1.5-5.0) % Troponin I (0.01-0.034) ng/mL Total Protein (6.3-8.2) g/dL Albumin (3.5-5.0) g/dL Globulin (1.7-4.1) g/dL Albumin/Globulin Ratio (1.0-2.8) Urine RBC (0-5/HPF) Urine WBC (0-5/HPF) Ur Squamous Epith Cells (0-5/HPF) Urine Bacteria (None) Hyaline Casts (None) Ur Culture Indicated? Salicylates (<20) mg/dL U Opiates 300ng/mL cut Negative (Negative) Ur Oxycodone Screen Negative (Negative) Urine Methadone Screen Negative (Negative) Acetaminophen (10-30) ug/mL Ur Barbiturates Screen Negative (Negative) U Tricyclic Antidepress Negative (Negative) Ur Phencyclidine Scrn Negative (Negative) Ur Amphetamines Screen Negative (Negative) U Methamphetamines Scrn Negative (Negative) Ur MDMA Scrn (Ecstasy) Negative (Negative) U Benzodiazepines Scrn Negative (Negative) Urine Cocaine Screen Negative (Negative) U Marijuana (THC) Screen Negative (Negative) Ethyl Alcohol ( - 10) mg/dL Ketones (<0.27) mmol/L SARS-CoV-2 (PCR) Negative (Negative) 12/17/22 12/17/22 12/17/22 Range/Units 18:58 20:00 20:00 WBC (4.5-11.0) X10^3/uL RBC (4.5-5.9) X10^6/uL Hgb (13.5-17.5) g/dL Hct (41-53) % MCV (80-100) fL MCH (26-34) PG MCHC (30-36) % RDW (11.6-14.8) % Plt Count (150-400) X10^3/uL Neut % (Auto) (50-75) % Lymph % (Auto) (25-40) % [place] % (Auto) (3-14) % Eos % (Auto) (2-4) % Baso % (Auto) (0-2) % Neut # (Auto) (6900-4036) /uL Lymph # (Auto) (4604-0975) /uL [place] # (Auto) (0-900) /uL Eos # (Auto) (0-450) /uL Baso # (Auto) (0-100) /uL PT (10.1-12.7) SECONDS INR (0.9-1.3) Sodium (137-145) mmol/L Potassium (3.4-5.1) mmol/L Chloride (98-107) mmol/L Carbon Dioxide (22-32) mmol/L BUN (9-20) mg/dL Creatinine (0.66-1.25) mg/dL Estimated GFR (>60) mL/min BUN/Creatinine Ratio (6-22) Glucose (80-110) mg/dL Lactate 2.5 H (0.7-2.1) mmol/L Calcium (8.4-10.2) mg/dL Magnesium (1.6-2.3) mg/dL Total Bilirubin (0.2-1.3) mg/dL AST (17-59) IU/L ALT (<50) IU/L Alkaline Phosphatase (38-126) U/L Total Creatine Kinase (55-170) U/L CK-MB (CK-2) (<2.37) ng/mL CK-MB (CK-2) Rel Index (1.5-5.0) % Troponin I (0.01-0.034) ng/mL Total Protein (6.3-8.2) g/dL Albumin (3.5-5.0) g/dL Globulin (1.7-4.1) g/dL Albumin/Globulin Ratio (1.0-2.8) Urine RBC 0-1/hpf (0-5/HPF) Urine WBC 0-1/hpf (0-5/HPF) Ur Squamous Epith Cells 0-1 /hpf (0-5/HPF) Urine Bacteria None seen (None) Hyaline Casts 0-1/lpf (None) Ur Culture Indicated? Cult not indicated Salicylates (<20) mg/dL U Opiates 300ng/mL cut (Negative) Ur Oxycodone Screen (Negative) Urine Methadone Screen (Negative) Acetaminophen (10-30) ug/mL Ur Barbiturates Screen (Negative) U Tricyclic Antidepress (Negative) Ur Phencyclidine Scrn (Negative) Ur Amphetamines Screen (Negative) U Methamphetamines Scrn (Negative) Ur MDMA Scrn (Ecstasy) (Negative) U Benzodiazepines Scrn (Negative) Urine Cocaine Screen (Negative) U Marijuana (THC) Screen (Negative) Ethyl Alcohol ( - 10) mg/dL Ketones 0.11 (<0.27) mmol/L SARS-CoV-2 (PCR) (Negative) Urine Dip Bedside Urine Glucose Negative Bedside Urine Bilirubin - Negative Bedside Urine Ketone - Negative Urine Specific Crystal 1.010 Bedside Urine Occult Blood - Negative Bedside Urine pH 6.0 Bedside Urine Protein +/- 15 Bedside Urine Urobilinogen - Negative Bedside Urine Nitrite - Negative Bedside Urine Leukocytes - Negative Esterase MDM Narrative Medical decision making narrative: [62] year old patient presents with generalized weakness and multiple falls Multiple etiologies for patient's symptoms considered including, but not limited to: [Dehydration versus alcohol intoxication versus withdrawal versus seizure versus malnutrition versus other] Prior Charts reviewed in our EMR Primary Historian: patient and family Labs reviewed and interpreted by myself: No leukocytosis or left shift, no anemia, very slightly low potassium otherwise no anion gap, acidosis or other electrolyte abnormality, renal function within normal, initial lactate significantly elevated which trends down, significance is uncertain, infection versus metabolic derangement versus) less likely) post seizure Imaging reviewed: Chest x-ray without acute findings, head CT demonstrates subacute versus chronic left frontal lobe infarct. Angiography of chest abdomen and pelvis performed given change in blood pressure between upper extremities, no significant change though there is some thickening of the right colon of unknown significance Consultations: Discussed with hospitalist Dr. Ortiz who will see the patient at bedside and agrees with admission for further characterization, stabilization and evaluation of his condition Discharge Plan Departure Patient Disposition: Admitted As Inpatient Clinical Impression: Alcohol abuse, Lactic acid acidosis, Weakness Admit Date/Time: 12/17/22 20:36 Admit Provider: Morgan Ortiz
[2022-12-17] MEDS: SODIUM CHLORIDE 0.9% 1,000 ML 1000 ML IV (17:32)
[2022-12-17 17:44] LABS: Add Manual Diff / Slide Review NO; Basophils Absolute Auto 0 /uL (0-100); Basophils Percent Auto 0.9 % (0-2); Eosinophils Absolute Auto 100 /uL (0-450); Eosinophils Percent Auto 2.9 % (2-4); Hematocrit 38.6 % (41-53); Hemoglobin 13.1 g/dL (13.5-17.5); Lymphocytes Absolute Auto 2200 /uL (1100-4500); Lymphocytes Percent Auto 55.7 % (25-40); Mean Corpuscular Volume 100.1 fL (80-100); Monocytes Absolute Auto 400 /uL (0-900); Monocytes Percent Auto 9.5 % (3-14); Neutrophils Absolute Auto 1200 /uL (1500-7000); Platelet Count 276 X10^3/uL (150-400); Red Blood Cell Count 3.85 X10^6/uL (4.5-5.9); Red Cell Distribution Width 14.4 % (11.6-14.8); White Blood Cell Count 3.9 X10^3/uL (4.5-11.0)
[2022-12-17] MEDS: THIAMINE IV (17:44)
[2022-12-17] MEDS: SODIUM CHLORIDE 0.9% IV (17:44)
--- NOTE | 2022-12-17 17:48 | DI.CT.S_ITS ---
PROCEDURE: CT ANGIO CHEST ABDOMEN PELVIS INDICATIONS: septic, significant change in BP from arm to arm TECHNIQUE: Precontrast 5 mm thick sections acquired from the lung apices to the iliac crests. After the administration of intravenous contrast, 2.5 mm thick sections again acquired from the lung apices to the iliac crests. Maximum intensity projection (MIP) oblique sagittal and coronal reformats were then acquired. For radiation dose reduction, the following was used: automated exposure control. COMPARISON: Outside Film, CT, CT ANGIO CHEST ABDOMEN PELVIS, 06/05/2022, 14:58. FINDINGS: Image quality: Excellent. AORTA: Mild calcific plaque throughout the thoracoabdominal aorta, causing mild diffuse stenosis. CHEST: Lungs and pleura: No acute airspace opacities. No pleural effusions or pneumothorax. Central and peripheral airways are patent and normal in caliber. Mediastinum: Heart size is chandrakant left subclavian artery is occluded, as before. Severe calcification of the coronary vasculature. No pericardial effusion. No mediastinal or hilar adenopathy by size criteria. Central pulmonary arteries are normal in size. Esophagus is normal in caliber. No hiatal hernias. Bones and chest wall: Chronic bilateral rib fractures. Left chest wall pacer. No axillary adenopathy by size criteria. Thyroid gland is grossly unremarkable . No suspicious bony lesions. No vertebral body compression fractures. ABDOMEN: Vasculature: Celiac trunk and mesenteric arteries are patent. Renal arteries are also patent. Solid organs: Diffusely decreased hepatic density. Gallbladder is grossly unremarkable . Biliary system is non dilated. Pancreas enhances normally. Spleen is normal in size and enhancement. No adrenal nodules. Both kidneys are normal in size and enhancement, without hydronephrosis. Peritoneum and bowel: No free fluid or air. There is mild thickening with surrounding fat stranding involving the ascending colon Nodes and vessels: No retroperitoneal or mesenteric adenopathy by size criteria. Inferior vena cava is normal in morphology. IVC filter. Miscellaneous: No ventral hernias. PELVIS: Genitourinary: Bladder wall thickness is normal. Miscellaneous: No inguinal hernias or adenopathy. No ventral hernias. Bones: No suspicious bony lesions. No vertebral body compression fractures. IMPRESSION: 1. No acute process involving thoracic aorta. 2. No change in left subclavian artery occlusion. 3. Coronary artery disease. 4. Hepatic steatosis. 5. Thickening of the right colon, suggestive of infection, ischemia, or inflammation. Dictated by: Susie Leal M.D. on 12/17/2022 at 17:48 Approved by: Susie Leal M.D. on 12/17/2022 at 17:53
[2022-12-17 17:54] LABS: INR 0.9 (0.9-1.3); Prothrombin Time 10.7 SECONDS (10.1-12.7)
[2022-12-17] MEDS: cefTRIAXone 2,000 MG in SODIUM CHLORIDE 0.9% 100 ML 200 MG IV (17:55)
[2022-12-17 18:00] LABS: Acetaminophen < 10 ug/mL (10-30); Alanine Aminotransferase 36 IU/L (<50); Albumin Globulin Ratio 1.6 (1.0-2.8); Alkaline Phosphatase 97 U/L (38-126); Aspartate Aminotransferase 70 IU/L (17-59); BUN Creatinine Ratio 6.3 (6-22); Bilirubin Total 0.3 mg/dL (0.2-1.3); Blood Urea Nitrogen 4 mg/dL (9-20); Calcium 8.3 mg/dL (8.4-10.2); Carbon Dioxide 27 mmol/L (22-32); Chloride 101 mmol/L (98-107); Creatine Kinase 124 U/L (55-170); Estimated Glomerular Filt Rate > 60 mL/min (>60); Globulin 2.5 g/dL (1.7-4.1); Glucose 156 mg/dL (80-110); HEMOLYSIS < 15 (0-50); Lactate (Lactic Acid) 5.2 mmol/L (0.7-2.1); Magnesium 1.5 mg/dL (1.6-2.3); Potassium 3.3 mmol/L (3.4-5.1); Salicylate < 1.0 mg/dL (<20); Sodium 142 mmol/L (137-145); Total Protein 6.5 g/dL (6.3-8.2)
[2022-12-17 18:11] LABS: Ethanol (ETOH) 407 mg/dL; Troponin I 0.021 ng/mL (0.01-0.034)
[2022-12-17 18:14] LABS: CKMB % Relative Index 1.2 % (1.5-5.0); Creatine Kinase MB 1.49 ng/mL (<2.37)
--- NOTE | 2022-12-17 18:22 | PC.NURSE ---
Pt states he has a crushed artery in his left arm, per family pt has a bad left shoulder. Pt relates this to the difference in blood pressure readings.
[2022-12-17 18:46] LABS: COVID19 -Nasal RAPID Negative (Negative)
[2022-12-17] MEDS: SODIUM CHLORIDE 0.9% 716.68 ML IV (18:54)
[2022-12-17 19:18] LABS: UR Morphine/Opiate cutoff 300 Negative (Negative); Ur Creatinine Normal (Normal); Ur Specific Gravity Normal (Normal); Urine Amphetamines Negative (Negative); Urine Barbiturates Negative (Negative); Urine Benzodiazepines Negative (Negative); Urine Cocaine Negative (Negative); Urine MDMA Negative (Negative); Urine Methadone Negative (Negative); Urine Methamphetamines Negative (Negative); Urine Oxycodone Negative (Negative); Urine Phencyclidine Negative (Negative); Urine Tetrahydrocannabinol Negative (Negative); Urine Tricyclic Antidepressant Negative (Negative); Urine pH Normal (Normal)
[2022-12-17 19:22] LABS: Bacteria Urine None Seen; Culture Indicated Urine Cult Not Indicated; Hyaline Casts Urine 0-1/LPF; RBC Urine 0-1/HPF (0-5/HPF); Squamous Epithelial Cell Urine 0-1 /HPF (0-5/HPF); WBC Urine 0-1/HPF (0-5/HPF)
[2022-12-17 19:40] LABS: Reflexed Lactate in 2 Hours Y
[2022-12-17 20:21] LABS: Lactate 2HR (Lactic Acid Rflx) 2.5 mmol/L (0.7-2.1)
[2022-12-17 21:29] LABS: Ketones (Beta-Hydroxybutyrate) 0.11 mmol/L (<0.27)
[2022-12-17] MEDS: LACTATED RINGERS 1,000 ML 100 ML IV (22:15)
[2022-12-17] MEDS: MAGNESIUM SULFATE 2 GM/50 ML PIGGYBACK IV (22:16)
[2022-12-17] MEDS: ATORVASTATIN 20 MG TABLET 40 MG PO (22:20)
[2022-12-17] MEDS: metroNIDAZOLE 500 MG/100 ML PIGGYBACK 100 MG IV (23:20)
--- NOTE | 2022-12-17 23:48 | PC.NURSE ---
pt arrived from the ER to room #226 at 2240. Pt able to move from rnie to bed with assist. CIWA=11. Answering questions appropriately. Tolerating sips of juice. IV ABX running in 3L CVL. No c/o nausea or pain. seizure pads placed on bed rails. Using urinal in bed with assist. Pt laying in bed watching tv, call light within reach.
[2022-12-17] MEDS: MEROPENEM 500 MG in SODIUM CHLORIDE 0.9% 100 ML 200 MG IV (23:59)
[2022-12-18] VITALS (173 sets, daily range): BP systolic 110–149; BP diastolic 58–96; PULSE 67–130; RESP 0–32; TEMP 36.5–36.8; O2SAT 59–100
[2022-12-18] MEDS: LORazepam 2 MG/ML INJ IV ×5 (00:23→21:01)
[2022-12-18 00:34] LABS: MRSA (Nasal) PCR Not Detected (Not Detect)
[2022-12-18] MEDS: ONDANSETRON 4 MG/2 ML INJ IV (03:02)
[2022-12-18 05:21] LABS: Add Manual Diff / Slide Review NO; Basophils Absolute Auto 0 /uL (0-100); Basophils Percent Auto 0.8 % (0-2); Eosinophils Absolute Auto 100 /uL (0-450); Eosinophils Percent Auto 3.6 % (2-4); Hemoglobin 11.2 g/dL (13.5-17.5); Lymphocytes Absolute Auto 1400 /uL (1100-4500); Mean Corpuscular HGB Conc 34.9 % (30-36); Mean Corpuscular Hemoglobin 34.6 PG (26-34); Mean Corpuscular Volume 99.3 fL (80-100); Monocytes Absolute Auto 400 /uL (0-900); Monocytes Percent Auto 11.4 % (3-14); Neutrophils Absolute Auto 1500 /uL (1500-7000); Neutrophils Percent Auto 44.2 % (50-75); Platelet Count 214 X10^3/uL (150-400); Red Blood Cell Count 3.22 X10^6/uL (4.5-5.9); Red Cell Distribution Width 14.6 % (11.6-14.8); White Blood Cell Count 3.4 X10^3/uL (4.5-11.0)
[2022-12-18 05:29] LABS: Lactate (Lactic Acid) 1.8 mmol/L (0.7-2.1)
[2022-12-18 05:32] LABS: BUN Creatinine Ratio 7.5 (6-22); Blood Urea Nitrogen 4 mg/dL (9-20); Calcium 7.2 mg/dL (8.4-10.2); Carbon Dioxide 29 mmol/L (22-32); Chloride 103 mmol/L (98-107); Estimated Glomerular Filt Rate > 60 mL/min (>60); Glucose 68 mg/dL (80-110); HEMOLYSIS < 15 (0-50); Magnesium 1.6 mg/dL (1.6-2.3); Potassium 3.3 mmol/L (3.4-5.1); Sodium 137 mmol/L (137-145)
--- NOTE | 2022-12-18 05:58 | P.HP_ITS ---
History of Present Illness History of Present Illness Date Patient Seen: 12/17/22 Time Patient Seen: 20:00 Chief complaint: ETOH Narrative: Mr. Nunn is a 62M with PMH Etoh abuse with history of withdrawals, seizure disorder, DVT, CVA who presents requesting detox. He is confused and has noted dysarthria, which he states is chronic for him. He states he has drank for his whole life. He drinks 750cc vodka in 2-3 days, last drink this morning. He last was sober for a prolonged period of time a few years ago. However he also been generally feeling unwell with weakness and falls. Otherwise he denies vomiting, diarrhea, cough, shortness of breath, abdominal pain. In the ED workup was done, vitals notable for afebrible, heart rate 100s, blood pressure 60s/40s, sats 95% on room air, transiently was hypoxic while hypotensive. Labs reviewed by me and notable for WBC 3.9, hgb 13.1, plts 276. Na 142, k 3.3, creatinine 0.63. Lactate 5.2->2.5. Mag 1.5. AST/ALT 70/36, bili 0.3. UA negative. Drug screen negative. EtOH 407. Ketones 0.11. CT head showed small chronic vs subacute left frontal infarct. Chest xray reviewed by me and showed no acute process. Ct abdomen showed thickening of the right colon of unclear etiology. He was ordered for antibiotics, IV fluids and thiamine. He had R IJ placed. He responded well to fluids with improvement in his blood pressure and was admitted for further treatment. [facility] Medical History Alcohol abuse Alcohol withdrawal syndrome, with delirium Anxiety Anxiety disorder Aphasia Apical mural thrombus Arrhythmia Bilateral pulmonary embolism Bipolar depression Chronic back pain Chronic neck pain Colonic polyp Dilated cardiomyopathy DVT (deep venous thrombosis) Essential hypertension GERD (gastroesophageal reflux disease) H/O ischemic left MCA stroke History of alcohol use History of CVA with residual deficit HTN (hypertension) Hyperlipidemia Insomnia Ischemic cardiomyopathy Lactic acidosis Major depression in remission Old MA (myocardial infarction) Peripheral blood vessel disorder Peripheral edema Reactive airway disease Seizure disorder Smoking Surgical History AICD (automatic cardioverter/defibrillator) present History of coronary artery stent placement No history of major surgery within 1 month Family History Mother Alcoholism and drug addiction in family Father Old age Social History household members: none Smoking Status: Current every day smoker alcohol intake: current Meds Home Medications and Allergies Home Medications Medication Instructions Recorded Confirmed Type albuterol 90 mcg/actuation aerosol 180 mcg inhalation Q4HR PRN 05/24/21 05/24/21 History inhaler Wheezing apixaban 5 mg tablet (Eliquis) 5 mg PO BID 05/24/21 05/24/21 History atenolol 25 mg tablet 25 mg PO BID 05/24/21 05/24/21 History atorvastatin 40 mg tablet 40 mg PO DAILY 05/24/21 12/17/22 History buspirone 10 mg tablet 10 mg PO TID 05/24/21 12/17/22 History cetirizine 10 mg tablet 10 mg PO DAILY 05/24/21 12/17/22 History fluoxetine 10 mg capsule 10 mg PO DAILY 05/24/21 12/17/22 History lamotrigine 200 mg tablet 200 mg PO BID 05/24/21 12/17/22 History lisinopril 5 mg tablet 5 mg PO DAILY 05/24/21 12/17/22 History omeprazole 20 mg capsule,delayed 20 mg PO 0600 05/24/21 12/17/22 History release polyethylene glycol 3350 17 17 g PO DAILY PRN Constipation 05/24/21 05/24/21 History gram/dose oral powder vitamin with calcium 1 tab PO DAILY 05/24/21 12/17/22 History no.72-iron 27 mg-folic acid 1 mg tablet ( Vitamins Plus Low Iron) trazodone 100 mg tablet 200 mg PO BEDTIME 05/24/21 12/17/22 History Allergies Allergy/AdvReac Type Severity Reaction Status Date / Time Penicillins Allergy Intermediate Rash Verified 12/17/22 16:40 latex Allergy ITCHING Verified 12/17/22 16:40 Review of Systems Review of Systems Narrative: 14 systems reviewed and negative aside from what is noted in HPI Exam Vital Signs (past 8 hours): - 12/17/22 22:00 12/17/22 22:00 12/17/22 22:05 Temperature Pulse Rate 101 H 108 H Respiratory Rate 17 20 Blood Pressure 120/66 Pulse Oximetry 94 94 Oxygen Delivery Method Oxygen Flow Rate 12/17/22 22:10 12/17/22 22:15 12/17/22 22:15 Temperature Pulse Rate 101 H 108 H Respiratory Rate 17 26 H Blood Pressure 120/69 Pulse Oximetry 93 93 Oxygen Delivery Method Oxygen Flow Rate 12/17/22 22:20 12/17/22 22:25 12/17/22 22:43 Temperature 98.5 F Pulse Rate 105 H 108 H 108 H Respiratory Rate 24 16 19 Blood Pressure 126/69 Pulse Oximetry 93 94 95 Oxygen Delivery Method Oxygen Flow Rate 12/17/22 23:00 12/18/22 00:00 12/18/22 00:18 Temperature Pulse Rate 104 H 97 H 99 H Respiratory Rate 20 16 12 Blood Pressure 115/75 123/72 Pulse Oximetry 93 93 93 Oxygen Delivery Method Oxygen Flow Rate 12/18/22 00:18 12/18/22 01:00 12/18/22 01:00 Temperature Pulse Rate 97 H Respiratory Rate 16 Blood Pressure 132/82 130/69 Pulse Oximetry 94 Oxygen Delivery Method Oxygen Flow Rate 12/18/22 01:11 12/18/22 01:00 12/18/22 00:45 Temperature Pulse Rate 96 H 90 Respiratory Rate 15 16 Blood Pressure 130/69 Pulse Oximetry 94 95 Oxygen Delivery Method Room Air Oxygen Flow Rate 12/18/22 02:00 12/18/22 02:00 12/18/22 02:05 Temperature Pulse Rate 125 H 94 H Respiratory Rate 32 H 15 Blood Pressure 149/96 H Pulse Oximetry 95 91 Oxygen Delivery Method Oxygen Flow Rate 12/18/22 03:00 12/18/22 03:00 12/18/22 03:05 Temperature Pulse Rate 130 H 94 H Respiratory Rate 24 15 Blood Pressure 142/82 H Pulse Oximetry 95 93 Oxygen Delivery Method Oxygen Flow Rate 12/18/22 03:52 12/18/22 03:52 12/18/22 03:55 Temperature Pulse Rate 88 85 Respiratory Rate 14 Blood Pressure 142/82 H Pulse Oximetry 95 94 Oxygen Delivery Method Oximask Oxygen Flow Rate 3 3 12/18/22 04:00 12/18/22 04:00 12/18/22 04:09 Temperature 97.9 F Pulse Rate 89 86 Respiratory Rate 13 12 Blood Pressure 128/65 Pulse Oximetry 95 96 Oxygen Delivery Method Oxygen Flow Rate 12/18/22 04:20 12/18/22 05:00 12/18/22 05:00 Temperature Pulse Rate 84 Respiratory Rate 16 Blood Pressure 124/58 L 124/58 L Pulse Oximetry 94 Oxygen Delivery Method Oximask Oxygen Flow Rate 3 3 12/18/22 05:00 12/18/22 05:32 Temperature Pulse Rate 80 83 Respiratory Rate 16 11 L Blood Pressure Pulse Oximetry 97 98 Oxygen Delivery Method Oxygen Flow Rate Oxygen Delivery Method Oximask Oxygen Flow Rate 3 Narrative Exam Narrative: GEN: confused, dysarthria HEENT: dry mucous membranes CV: tachycardic, no murmurs PULM: clear bilaterally ABD: soft, nontender, nondistended, no organomegaly EXT: warm and well perfused with no edema NEURO: dysarthria, no other focal deficits noted Objective Labs 12/18/22 04:16 12/18/22 04:16 Labs: Laboratory Results - last 24 hr 12/17/22 12/17/22 12/17/22 17:32 17:32 17:32 WBC 3.9 L RBC 3.85 L Hgb 13.1 L Hct 38.6 L MCV 100.1 H MCH 34.0 MCHC 34.0 RDW 14.4 Plt Count 276 Neut % (Auto) 31.0 L Lymph % (Auto) 55.[address] [place] % (Auto) 9.5 Eos % (Auto) 2.9 Baso % (Auto) 0.9 Neut # (Auto) 1200 L Lymph # (Auto) 2200 [facility] # (Auto) 400 Eos # (Auto) 100 Baso # (Auto) 0 PT 10.7 INR 0.9 Sodium 142 Potassium 3.3 L Chloride 101 Carbon Dioxide 27 BUN 4 L Creatinine 0.63 L Estimated GFR > 60 BUN/Creatinine Ratio 6.3 Glucose 156 H Lactate Calcium 8.3 L Magnesium 1.5 L Total Bilirubin 0.3 AST 70 H ALT 36 Alkaline Phosphatase 97 Total Creatine Kinase 124 CK-MB (CK-2) 1.49 CK-MB (CK-2) Rel Index 1.2 L Troponin I 0.021 Total Protein 6.5 Albumin 4.0 Globulin 2.5 Albumin/Globulin Ratio 1.6 Urine RBC Urine WBC Ur Squamous Epith Cells Urine Bacteria Hyaline Casts Ur Culture Indicated? Nasal Screen MRSA (PCR) Salicylates < 1.0 U Opiates 300ng/mL cut Ur Oxycodone Screen Urine Methadone Screen Acetaminophen < 10 Ur Barbiturates Screen U Tricyclic Antidepress Ur Phencyclidine Scrn Ur Amphetamines Screen U Methamphetamines Scrn Ur MDMA Scrn (Ecstasy) U Benzodiazepines Scrn Urine Cocaine Screen U Marijuana (THC) Screen Ethyl Alcohol 407 H* Ketones SARS-CoV-2 (PCR) 12/17/22 12/17/22 12/17/22 17:32 17:50 18:58 WBC RBC Hgb Hct MCV MCH MCHC RDW Plt Count Neut % (Auto) Lymph % (Auto) [place] % (Auto) Eos % (Auto) Baso % (Auto) Neut # (Auto) Lymph # (Auto) [facility] # (Auto) Eos # (Auto) Baso # (Auto) PT INR Sodium Potassium Chloride Carbon Dioxide BUN Creatinine Estimated GFR BUN/Creatinine Ratio Glucose Lactate 5.2 H* Calcium Magnesium Total Bilirubin AST ALT Alkaline Phosphatase Total Creatine Kinase CK-MB (CK-2) CK-MB (CK-2) Rel Index Troponin I Total Protein Albumin Globulin Albumin/Globulin Ratio Urine RBC Urine WBC Ur Squamous Epith Cells Urine Bacteria Hyaline Casts Ur Culture Indicated? Nasal Screen MRSA (PCR) Salicylates U Opiates 300ng/mL cut Negative Ur Oxycodone Screen Negative Urine Methadone Screen Negative Acetaminophen Ur Barbiturates Screen Negative U Tricyclic Antidepress Negative Ur Phencyclidine Scrn Negative Ur Amphetamines Screen Negative U Methamphetamines Scrn Negative Ur MDMA Scrn (Ecstasy) Negative U Benzodiazepines Scrn Negative Urine Cocaine Screen Negative U Marijuana (THC) Screen Negative Ethyl Alcohol Ketones SARS-CoV-2 (PCR) Negative 12/17/22 12/17/22 12/17/22 18:58 20:00 20:00 WBC RBC Hgb Hct MCV MCH MCHC RDW Plt Count Neut % (Auto) Lymph % (Auto) [place] % (Auto) Eos % (Auto) Baso % (Auto) Neut # (Auto) Lymph # (Auto) [facility] # (Auto) Eos # (Auto) Baso # (Auto) PT INR Sodium Potassium Chloride Carbon Dioxide BUN Creatinine Estimated GFR BUN/Creatinine Ratio Glucose Lactate 2.5 H Calcium Magnesium Total Bilirubin AST ALT Alkaline Phosphatase Total Creatine Kinase CK-MB (CK-2) CK-MB (CK-2) Rel Index Troponin I Total Protein Albumin Globulin Albumin/Globulin Ratio Urine RBC 0-1/hpf Urine WBC 0-1/hpf Ur Squamous Epith Cells 0-1 /hpf Urine Bacteria None seen Hyaline Casts 0-1/lpf Ur Culture Indicated? Cult not indicated Nasal Screen MRSA (PCR) Salicylates U Opiates 300ng/mL cut Ur Oxycodone Screen Urine Methadone Screen Acetaminophen Ur Barbiturates Screen U Tricyclic Antidepress Ur Phencyclidine Scrn Ur Amphetamines Screen U Methamphetamines Scrn Ur MDMA Scrn (Ecstasy) U Benzodiazepines Scrn Urine Cocaine Screen U Marijuana (THC) Screen Ethyl Alcohol Ketones 0.11 SARS-CoV-2 (PCR) 12/17/22 12/18/22 12/18/22 22:45 04:16 04:16 WBC 3.4 L RBC 3.22 L Hgb 11.2 L Hct 32.0 L MCV 99.3 MCH 34.6 H MCHC 34.9 RDW 14.6 Plt Count 214 Neut % (Auto) 44.2 L Lymph % (Auto) 40.0 [facility] % (Auto) 11.4 Eos % (Auto) 3.6 Baso % (Auto) 0.8 Neut # (Auto) 1500 Lymph # (Auto) 1400 [facility] # (Auto) 400 Eos # (Auto) 100 Baso # (Auto) 0 PT INR Sodium 137 Potassium 3.3 L Chloride 103 Carbon Dioxide 29 BUN 4 L Creatinine 0.53 L Estimated GFR > 60 BUN/Creatinine Ratio 7.5 Glucose 68 L Lactate Calcium 7.2 L Magnesium 1.6 Total Bilirubin AST ALT Alkaline Phosphatase Total Creatine Kinase CK-MB (CK-2) CK-MB (CK-2) Rel Index Troponin I Total Protein Albumin Globulin Albumin/Globulin Ratio Urine RBC Urine WBC Ur Squamous Epith Cells Urine Bacteria Hyaline Casts Ur Culture Indicated? Nasal Screen MRSA (PCR) Not detected Salicylates U Opiates 300ng/mL cut Ur Oxycodone Screen Urine Methadone Screen Acetaminophen Ur Barbiturates Screen U Tricyclic Antidepress Ur Phencyclidine Scrn Ur Amphetamines Screen U Methamphetamines Scrn Ur MDMA Scrn (Ecstasy) U Benzodiazepines Scrn Urine Cocaine Screen U Marijuana (THC) Screen Ethyl Alcohol Ketones SARS-CoV-2 (PCR) 12/18/22 04:16 WBC RBC Hgb Hct MCV MCH MCHC RDW Plt Count Neut % (Auto) Lymph % (Auto) [facility] % (Auto) Eos % (Auto) Baso % (Auto) Neut # (Auto) Lymph # (Auto) [facility] # (Auto) Eos # (Auto) Baso # (Auto) PT INR Sodium Potassium Chloride Carbon Dioxide BUN Creatinine Estimated GFR BUN/Creatinine Ratio Glucose Lactate 1.8 Calcium Magnesium Total Bilirubin AST ALT Alkaline Phosphatase Total Creatine Kinase CK-MB (CK-2) CK-MB (CK-2) Rel Index Troponin I Total Protein Albumin Globulin Albumin/Globulin Ratio Urine RBC Urine WBC Ur Squamous Epith Cells Urine Bacteria Hyaline Casts Ur Culture Indicated? Nasal Screen MRSA (PCR) Salicylates U Opiates 300ng/mL cut Ur Oxycodone Screen Urine Methadone Screen Acetaminophen Ur Barbiturates Screen U Tricyclic Antidepress Ur Phencyclidine Scrn Ur Amphetamines Screen U Methamphetamines Scrn Ur MDMA Scrn (Ecstasy) U Benzodiazepines Scrn Urine Cocaine Screen U Marijuana (THC) Screen Ethyl Alcohol Ketones SARS-CoV-2 (PCR) Assessment & Plan Assessment & Plan narrative: 1. Hypotension -presented with blood pressure initially in 60s -has R IJ placed -never required pressors -improved wth fluid resuscitation -etiology is likely hypovolemia from poor PO intake vs less likely infectious/sepsis -continue with IV fluids and antibiotics -per documentation has history of alcohol cardiomyopathy, so could consider ECHO if remains hypotensive 2. Acute metabolic encephalopathy -etiology is intoxication vs wernickes vs cva vs infectious vs postictal -suspect most likely is intoxication -monitor neuro status as patient reena up -ordered high dose thiamine to treat/prevent wernickes -suspect less likely acute cva, or seizure or infectious ---but will treat those etiologies as below and further workup may be needed if confusion persists 2. Elevated lactate -presented with lactate of over 5 -secondary to seizure vs sepsis vs thiamine deficiency vs hypovolemia -improved with treatment with fluids and thiamine and antibiotics -suspect patient is probably very hypovolemic with continued alcohol abuse -think this is less likely seizure but can not rule out -lactate resolved to normal 3. Possible colitis -CT showed thickened colon wall -ordered for stool studies -currently having minimal symptoms, with no diarrhea -could be possible source of SIRS and hypotension -will empirically treat with zosyn, but at this point think less likely infection, and antibiotics may be stopped if no overt abdominal source becomes evident 4. EtoH abuse, with history of withdrawal -presented with EtOH level > 400 -wants detox -ordered for benzos per [facility] protocol -ordered MVI, thiamine, folate - for info regarding outpatient treatment 5. Seizuire disorder -continue lamotrigine 6. Depression -continue buspar 7. History of DVT -continue eliquis 8. History of CVA -suspect CT head findings are old -consider MRI for further evaluation, if as he reena up there is more evidence of acute neurologic change I have discussed plan and obtained history from patient. I have discussed plan of care with ED physician and bedside nurse. I have reviewed labs, imaging, previous medical notes. CODE: Full Proxy: Greta Nunn, daughter [facility] - Meds 'Current medications' to include all prescriptions, [id number] products, herbals, cannabis/cannabidiol products, and vitamin/mineral/dietary (nutritional) supplements. I have utilized all available resources to obtain, update, or review the patient?s current medications. [If Yes, STOP here]: Yes
[2022-12-18] MEDS: metroNIDAZOLE 500 MG/100 ML PIGGYBACK 100 MG IV ×3 (06:12→22:13)
[2022-12-18] MEDS: MEROPENEM 500 MG in SODIUM CHLORIDE 0.9% 100 ML 200 MG IV (06:48)
[2022-12-18] MEDS: MAGNESIUM SULFATE 2 GM/50 ML PIGGYBACK IV (07:25)
[2022-12-18] MEDS: LACTATED RINGERS 1,000 ML 100 ML IV (07:51)
[2022-12-18] MEDS: THIAMINE 500 MG in SODIUM CHLORIDE 0.9% 100 ML 420 MG IV ×3 (08:15→20:28)
[2022-12-18] MEDS: FOLIC ACID 1 MG TABLET PO (08:16)
[2022-12-18] MEDS: APIXABAN 5 MG TABLET PO ×2 (08:16→20:28)
[2022-12-18] MEDS: lamoTRIgine 100 MG TABLET 200 MG PO ×2 (08:16→20:27)
[2022-12-18] MEDS: MULTIVITAMIN 1 TABLET 1 TAB PO (08:16)
[2022-12-18] MEDS: ASPIRIN EC 81 MG TABLET PO (08:16)
[2022-12-18] MEDS: BUSPIRONE 5 MG TABLET 10 MG PO ×3 (08:16→20:27)
[2022-12-18] MEDS: FLUoxetine 10 MG CAPSULE PO (08:16)
[2022-12-18] MEDS: chlordiazePOXIDE 25 MG CAPSULE 50 MG PO ×2 (11:21→20:28)
[2022-12-18] MEDS: POTASSIUM CHLORIDE 20 MEQ TAB 40 MEQ PO ×2 (11:22→15:55)
--- NOTE | 2022-12-18 13:15 | CM.DANOTE ---
Patient is a 62 yo male who was admitted on 12/17/22 for ETOH Detox. Pt has MEDICAID for insurance and his PCP is not listed. EMR was reviewed. Per MD, pt with hx of ETOH and withdrawal seizures and hx of CVA and admitted for ETOH detox. Pt has a long hx of ETOH and CIWA currently 11 and receiving librium. Pt last admitted about 2 years ago in Apr 2021 for similar and discharged back home with caregiver. SW met bedside with pt who is currently on oxygen mask and explained role and pt able to participate but limited due to drowsiness. Due to pt's prior CVA and residual deficits and likely current medications, pt difficult to understand. Pt confirms he still lives in an apt in [place] alone and no local family still. Pt still has his [facility] CG a few days a week to help with laundry, cleaning and cooking and he thinks his HU CM is still [place] ([phone]). Pt does not drive and either his [facility] CG provides transport or he uses Medicaid transportation. Pt states he has multiple ETOH tx hx and last tx was Inpt ETOH at [facility] in [place] a couple years ago for about 2.5 months. Pt states his lack of transportation is a barrier to outpt tx (although he could utilize his Medicaid transport for tx) and he is currently not interested in Inpt ETOH tx. Pt faxed H&P to HU to review and will call tomorrow Monday to confirm HU CM and above information. Plan: SW to follow for likely need for PT eval to confirm safe d/c home when medically stable and pt may need assist with transport through Medicaid and ongoing discussion with pt regarding ETOH resources and tx. ZAYDA Morales Discharge Planning/Care Management Advanced directive, confirm from FAMILY Start: 12/17/22 23:13 Freq: Q24H Status: Active Protocol: Document 12/17/22 23:13 BG (Rec: 12/18/22 01:32 BG [id number]) Advance Directive, confirm on record Time 01:32 Person contacted unknown Copy received No CM Discharge Assessment Start: 12/18/22 13:13 Freq: Status: Active Protocol: Document 12/18/22 13:13 BF (Rec: 12/18/22 13:15 BF [id number]) Discharge Planning Assessment Assigned Electronics Technology Instructor ZAYDA Gordillo DPOA/Assigned Designee Name none Advance Directives? No Advance Directives on File No History Provided By Patient,Medical Record Has Patient been admitted in last 30 No days? Prior Living Arrangements Apartment/Condo Household Members none Type of transporation used prior to Relies on Others admit Independent with ADL's No Is patient alert and oriented? Yes Needs Assistance With Meal Prep,Managing Medications ,Home Chores / Shopping Caregiver for Another No Barriers to Discharge No Discharge Plan Home with Home Health Transportation Arrangement Medicaid taxi vs HU CG Additional Comment Pending progress and eventual PT/OT eval Whiteboard Updated in Patient Room with Yes name and ext. # of Electronics Technology Instructor Review Status In Process Please Provide Date Initial DC 12/18/22 Assessment Was Performed Next Review Type Continued Stay Review
--- NOTE | 2022-12-18 13:41 | PM.PN.1 ---
Subjective Subjective Interval history: 62 year old male admitted with alcohol withdrawal. He had elevated CIWA scores, started on librium this morning. Feels poor today, with tremors. No chest pain, nausea, vomiting. Exam Vital Signs (past 8 hours): - 12/18/22 06:00 12/18/22 06:00 12/18/22 06:12 Temperature Pulse Rate 93 H 82 Respiratory Rate 18 15 Blood Pressure 134/71 Pulse Oximetry 95 95 Oxygen Delivery Method Oxygen Flow Rate 12/18/22 06:25 12/18/22 06:15 12/18/22 06:20 Temperature Pulse Rate 78 81 81 Respiratory Rate 16 12 12 Blood Pressure 134/71 Pulse Oximetry 96 96 Oxygen Delivery Method Oxygen Flow Rate 12/18/22 06:25 12/18/22 06:30 12/18/22 06:35 Temperature Pulse Rate 81 75 81 Respiratory Rate 15 12 16 Blood Pressure Pulse Oximetry 97 97 96 Oxygen Delivery Method Oxygen Flow Rate 12/18/22 06:40 12/18/22 06:45 12/18/22 06:50 Temperature Pulse Rate 87 76 83 Respiratory Rate 18 16 11 L Blood Pressure Pulse Oximetry 96 96 98 Oxygen Delivery Method Oxygen Flow Rate 12/18/22 06:55 12/18/22 07:00 12/18/22 07:00 Temperature Pulse Rate 82 78 Respiratory Rate 13 16 Blood Pressure 130/65 Pulse Oximetry 98 95 Oxygen Delivery Method Oxygen Flow Rate 12/18/22 07:05 12/18/22 07:10 12/18/22 07:15 Temperature Pulse Rate 81 79 86 Respiratory Rate 16 16 Blood Pressure Pulse Oximetry 97 97 98 Oxygen Delivery Method Oxygen Flow Rate 12/18/22 07:20 12/18/22 07:25 12/18/22 07:45 Temperature Pulse Rate 82 80 Respiratory Rate 0 L 15 Blood Pressure Pulse Oximetry 96 97 Oxygen Delivery Method Oximask Oxygen Flow Rate 12/18/22 07:30 12/18/22 07:35 12/18/22 07:40 Temperature Pulse Rate 77 86 80 Respiratory Rate 18 14 14 Blood Pressure Pulse Oximetry 97 97 99 Oxygen Delivery Method Oxygen Flow Rate 12/18/22 07:45 12/18/22 07:50 12/18/22 07:55 Temperature Pulse Rate 81 78 88 Respiratory Rate 13 14 22 Blood Pressure Pulse Oximetry 97 97 98 Oxygen Delivery Method Oxygen Flow Rate 12/18/22 08:00 12/18/22 08:00 12/18/22 08:00 Temperature 98 F Pulse Rate 76 Respiratory Rate 14 Blood Pressure 124/62 Pulse Oximetry 95 98 Oxygen Delivery Method Oximask Oxygen Flow Rate 3 12/18/22 08:05 12/18/22 08:10 12/18/22 08:15 Temperature Pulse Rate 76 80 111 H Respiratory Rate 17 16 23 Blood Pressure Pulse Oximetry 97 98 96 Oxygen Delivery Method Oxygen Flow Rate 12/18/22 08:20 12/18/22 08:25 12/18/22 08:30 Temperature Pulse Rate 95 H 83 86 Respiratory Rate 22 13 13 Blood Pressure Pulse Oximetry 94 95 95 Oxygen Delivery Method Oxygen Flow Rate 12/18/22 08:35 12/18/22 08:40 12/18/22 08:45 Temperature Pulse Rate 87 84 83 Respiratory Rate 13 14 16 Blood Pressure Pulse Oximetry 94 96 97 Oxygen Delivery Method Oxygen Flow Rate 12/18/22 08:50 12/18/22 08:55 12/18/22 09:00 Temperature Pulse Rate 87 87 Respiratory Rate 15 13 Blood Pressure 129/60 Pulse Oximetry 97 97 Oxygen Delivery Method Oxygen Flow Rate 12/18/22 09:00 12/18/22 09:05 12/18/22 09:10 Temperature Pulse Rate 83 85 85 Respiratory Rate 16 18 16 Blood Pressure Pulse Oximetry 97 98 100 Oxygen Delivery Method Oxygen Flow Rate 12/18/22 09:15 12/18/22 09:34 12/18/22 09:20 Temperature Pulse Rate 84 80 85 Respiratory Rate 13 16 17 Blood Pressure 129/60 Pulse Oximetry 96 Oxygen Delivery Method Oxygen Flow Rate 12/18/22 09:25 12/18/22 09:30 12/18/22 09:35 Temperature Pulse Rate 82 86 82 Respiratory Rate 14 15 16 Blood Pressure Pulse Oximetry 98 100 Oxygen Delivery Method Oxygen Flow Rate 12/18/22 09:40 12/18/22 09:45 12/18/22 09:50 Temperature Pulse Rate 82 80 80 Respiratory Rate 16 16 16 Blood Pressure Pulse Oximetry 100 Oxygen Delivery Method Oxygen Flow Rate 12/18/22 09:55 12/18/22 10:00 12/18/22 10:00 Temperature Pulse Rate 80 79 Respiratory Rate 16 18 Blood Pressure 110/58 L Pulse Oximetry 59 L Oxygen Delivery Method Oxygen Flow Rate 12/18/22 10:05 12/18/22 10:10 12/18/22 10:15 Temperature Pulse Rate 79 77 79 Respiratory Rate 16 12 15 Blood Pressure Pulse Oximetry 99 74 L 97 Oxygen Delivery Method Oxygen Flow Rate 12/18/22 10:20 12/18/22 10:25 12/18/22 10:30 Temperature Pulse Rate 78 79 78 Respiratory Rate 14 14 17 Blood Pressure Pulse Oximetry 99 100 95 Oxygen Delivery Method Oxygen Flow Rate 12/18/22 10:35 12/18/22 10:40 12/18/22 10:45 Temperature Pulse Rate 78 75 75 Respiratory Rate 15 16 12 Blood Pressure Pulse Oximetry 81 L 99 Oxygen Delivery Method Oxygen Flow Rate 12/18/22 10:50 12/18/22 10:55 12/18/22 11:00 Temperature Pulse Rate 72 73 Respiratory Rate 11 L 17 Blood Pressure 119/66 Pulse Oximetry 99 98 Oxygen Delivery Method Oxygen Flow Rate 12/18/22 11:00 12/18/22 11:05 12/18/22 11:10 Temperature Pulse Rate 74 73 72 Respiratory Rate 15 16 16 Blood Pressure Pulse Oximetry 98 98 99 Oxygen Delivery Method Oxygen Flow Rate 12/18/22 11:15 12/18/22 11:20 12/18/22 11:25 Temperature Pulse Rate 83 84 87 Respiratory Rate 14 19 22 Blood Pressure Pulse Oximetry 98 97 97 Oxygen Delivery Method Oxygen Flow Rate 12/18/22 11:30 12/18/22 11:35 12/18/22 11:40 Temperature Pulse Rate 83 85 78 Respiratory Rate 15 14 14 Blood Pressure Pulse Oximetry 97 97 98 Oxygen Delivery Method Oxygen Flow Rate 12/18/22 11:31 12/18/22 12:00 12/18/22 11:45 Temperature Pulse Rate 80 Respiratory Rate 17 Blood Pressure Pulse Oximetry 95 96 Oxygen Delivery Method Oximask Oximask Oxygen Flow Rate 3 12/18/22 11:50 12/18/22 11:55 12/18/22 12:00 Temperature Pulse Rate 77 76 Respiratory Rate 13 16 Blood Pressure 125/66 Pulse Oximetry 98 98 Oxygen Delivery Method Oxygen Flow Rate 12/18/22 12:00 12/18/22 12:05 12/18/22 12:10 Temperature Pulse Rate 75 75 88 Respiratory Rate 14 16 21 Blood Pressure Pulse Oximetry 98 98 96 Oxygen Delivery Method Oxygen Flow Rate 12/18/22 12:15 12/18/22 12:20 12/18/22 12:25 Temperature Pulse Rate 83 73 84 Respiratory Rate 17 14 18 Blood Pressure Pulse Oximetry 94 94 95 Oxygen Delivery Method Oxygen Flow Rate 12/18/22 12:30 12/18/22 12:35 12/18/22 12:40 Temperature 98.3 F Pulse Rate 102 H 89 79 Respiratory Rate 14 18 16 Blood Pressure Pulse Oximetry 93 90 L 93 Oxygen Delivery Method Oxygen Flow Rate 12/18/22 12:45 12/18/22 12:50 12/18/22 12:55 Temperature Pulse Rate 76 77 83 Respiratory Rate 12 13 18 Blood Pressure Pulse Oximetry 92 93 91 Oxygen Delivery Method Oxygen Flow Rate 12/18/22 13:00 12/18/22 13:00 12/18/22 13:05 Temperature Pulse Rate 91 H 77 Respiratory Rate 14 17 Blood Pressure 133/72 Pulse Oximetry 94 93 Oxygen Delivery Method Oxygen Flow Rate 12/18/22 13:10 12/18/22 13:15 12/18/22 13:28 Temperature Pulse Rate 83 82 84 Respiratory Rate 14 18 Blood Pressure Pulse Oximetry 94 94 99 Oxygen Delivery Method Oxygen Flow Rate 12/18/22 13:30 Temperature Pulse Rate 91 H Respiratory Rate 16 Blood Pressure Pulse Oximetry 93 Oxygen Delivery Method Oxygen Flow Rate Oxygen Delivery Method Oximask Oxygen Flow Rate 3 Narrative Exam Narrative: GEN: mild distress, chronically ill appearing HEENT: dry mucous membranes CV: RRR, no murmurs PULM: clear bilaterally ABD: soft, nontender, nondistended, no organomegaly EXT: warm and well perfused with no edema NEURO: dysarthria, no other focal deficits noted, + tremors and tongue fasciculations Objective Labs 12/18/22 04:16 12/18/22 04:16 Labs: Laboratory Results - last 24 hr 12/17/22 12/17/22 12/17/22 17:32 17:32 17:32 WBC 3.9 L RBC 3.85 L Hgb 13.1 L Hct 38.6 L MCV 100.1 H MCH 34.0 MCHC 34.0 RDW 14.4 Plt Count 276 Neut % (Auto) 31.0 L Lymph % (Auto) 55.7 H Toole % (Auto) 9.5 Eos % (Auto) 2.9 Baso % (Auto) 0.9 Neut # (Auto) 1200 L Lymph # (Auto) 2200 Toole # (Auto) 400 Eos # (Auto) 100 Baso # (Auto) 0 PT 10.7 INR 0.9 Sodium 142 Potassium 3.3 L Chloride 101 Carbon Dioxide 27 BUN 4 L Creatinine 0.63 L Estimated GFR > 60 BUN/Creatinine Ratio 6.3 Glucose 156 H Lactate Calcium 8.3 L Magnesium 1.5 L Total Bilirubin 0.3 AST 70 H ALT 36 Alkaline Phosphatase 97 Total Creatine Kinase 124 CK-MB (CK-2) 1.49 CK-MB (CK-2) Rel Index 1.2 L Troponin I 0.021 Total Protein 6.5 Albumin 4.0 Globulin 2.5 Albumin/Globulin Ratio 1.6 Urine RBC Urine WBC Ur Squamous Epith Cells Urine Bacteria Hyaline Casts Ur Culture Indicated? Nasal Screen MRSA (PCR) Salicylates < 1.0 U Opiates 300ng/mL cut Ur Oxycodone Screen Urine Methadone Screen Acetaminophen < 10 Ur Barbiturates Screen U Tricyclic Antidepress Ur Phencyclidine Scrn Ur Amphetamines Screen U Methamphetamines Scrn Ur MDMA Scrn (Ecstasy) U Benzodiazepines Scrn Urine Cocaine Screen U Marijuana (THC) Screen Ethyl Alcohol 407 H* Ketones SARS-CoV-2 (PCR) 12/17/22 12/17/22 12/17/22 17:32 17:50 18:58 WBC RBC Hgb Hct MCV MCH MCHC RDW Plt Count Neut % (Auto) Lymph % (Auto) Toole % (Auto) Eos % (Auto) Baso % (Auto) Neut # (Auto) Lymph # (Auto) Toole # (Auto) Eos # (Auto) Baso # (Auto) PT INR Sodium Potassium Chloride Carbon Dioxide BUN Creatinine Estimated GFR BUN/Creatinine Ratio Glucose Lactate 5.2 H* Calcium Magnesium Total Bilirubin AST ALT Alkaline Phosphatase Total Creatine Kinase CK-MB (CK-2) CK-MB (CK-2) Rel Index Troponin I Total Protein Albumin Globulin Albumin/Globulin Ratio Urine RBC Urine WBC Ur Squamous Epith Cells Urine Bacteria Hyaline Casts Ur Culture Indicated? Nasal Screen MRSA (PCR) Salicylates U Opiates 300ng/mL cut Negative Ur Oxycodone Screen Negative Urine Methadone Screen Negative Acetaminophen Ur Barbiturates Screen Negative U Tricyclic Antidepress Negative Ur Phencyclidine Scrn Negative Ur Amphetamines Screen Negative U Methamphetamines Scrn Negative Ur MDMA Scrn (Ecstasy) Negative U Benzodiazepines Scrn Negative Urine Cocaine Screen Negative U Marijuana (THC) Screen Negative Ethyl Alcohol Ketones SARS-CoV-2 (PCR) Negative 12/17/22 12/17/22 12/17/22 18:58 20:00 20:00 WBC RBC Hgb Hct MCV MCH MCHC RDW Plt Count Neut % (Auto) Lymph % (Auto) Toole % (Auto) Eos % (Auto) Baso % (Auto) Neut # (Auto) Lymph # (Auto) Toole # (Auto) Eos # (Auto) Baso # (Auto) PT INR Sodium Potassium Chloride Carbon Dioxide BUN Creatinine Estimated GFR BUN/Creatinine Ratio Glucose Lactate 2.5 H Calcium Magnesium Total Bilirubin AST ALT Alkaline Phosphatase Total Creatine Kinase CK-MB (CK-2) CK-MB (CK-2) Rel Index Troponin I Total Protein Albumin Globulin Albumin/Globulin Ratio Urine RBC 0-1/hpf Urine WBC 0-1/hpf Ur Squamous Epith Cells 0-1 /hpf Urine Bacteria None seen Hyaline Casts 0-1/lpf Ur Culture Indicated? Cult not indicated Nasal Screen MRSA (PCR) Salicylates U Opiates 300ng/mL cut Ur Oxycodone Screen Urine Methadone Screen Acetaminophen Ur Barbiturates Screen U Tricyclic Antidepress Ur Phencyclidine Scrn Ur Amphetamines Screen U Methamphetamines Scrn Ur MDMA Scrn (Ecstasy) U Benzodiazepines Scrn Urine Cocaine Screen U Marijuana (THC) Screen Ethyl Alcohol Ketones 0.11 SARS-CoV-2 (PCR) 12/17/22 12/18/22 12/18/22 22:45 04:16 04:16 WBC 3.4 L RBC 3.22 L Hgb 11.2 L Hct 32.0 L MCV 99.3 MCH 34.6 H MCHC 34.9 RDW 14.6 Plt Count 214 Neut % (Auto) 44.2 L Lymph % (Auto) 40.0 Toole % (Auto) 11.4 Eos % (Auto) 3.6 Baso % (Auto) 0.8 Neut # (Auto) 1500 Lymph # (Auto) 1400 Toole # (Auto) 400 Eos # (Auto) 100 Baso # (Auto) 0 PT INR Sodium 137 Potassium 3.3 L Chloride 103 Carbon Dioxide 29 BUN 4 L Creatinine 0.53 L Estimated GFR > 60 BUN/Creatinine Ratio 7.5 Glucose 68 L Lactate Calcium 7.2 L Magnesium 1.6 Total Bilirubin AST ALT Alkaline Phosphatase Total Creatine Kinase CK-MB (CK-2) CK-MB (CK-2) Rel Index Troponin I Total Protein Albumin Globulin Albumin/Globulin Ratio Urine RBC Urine WBC Ur Squamous Epith Cells Urine Bacteria Hyaline Casts Ur Culture Indicated? Nasal Screen MRSA (PCR) Not detected Salicylates U Opiates 300ng/mL cut Ur Oxycodone Screen Urine Methadone Screen Acetaminophen Ur Barbiturates Screen U Tricyclic Antidepress Ur Phencyclidine Scrn Ur Amphetamines Screen U Methamphetamines Scrn Ur MDMA Scrn (Ecstasy) U Benzodiazepines Scrn Urine Cocaine Screen U Marijuana (THC) Screen Ethyl Alcohol Ketones SARS-CoV-2 (PCR) 12/18/22 04:16 WBC RBC Hgb Hct MCV MCH MCHC RDW Plt Count Neut % (Auto) Lymph % (Auto) Toole % (Auto) Eos % (Auto) Baso % (Auto) Neut # (Auto) Lymph # (Auto) Toole # (Auto) Eos # (Auto) Baso # (Auto) PT INR Sodium Potassium Chloride Carbon Dioxide BUN Creatinine Estimated GFR BUN/Creatinine Ratio Glucose Lactate 1.8 Calcium Magnesium Total Bilirubin AST ALT Alkaline Phosphatase Total Creatine Kinase CK-MB (CK-2) CK-MB (CK-2) Rel Index Troponin I Total Protein Albumin Globulin Albumin/Globulin Ratio Urine RBC Urine WBC Ur Squamous Epith Cells Urine Bacteria Hyaline Casts Ur Culture Indicated? Nasal Screen MRSA (PCR) Salicylates U Opiates 300ng/mL cut Ur Oxycodone Screen Urine Methadone Screen Acetaminophen Ur Barbiturates Screen U Tricyclic Antidepress Ur Phencyclidine Scrn Ur Amphetamines Screen U Methamphetamines Scrn Ur MDMA Scrn (Ecstasy) U Benzodiazepines Scrn Urine Cocaine Screen U Marijuana (THC) Screen Ethyl Alcohol Ketones SARS-CoV-2 (PCR) PFSH Medical History Alcohol abuse Alcohol withdrawal syndrome, with delirium Anxiety Anxiety disorder Aphasia Apical mural thrombus Arrhythmia Bilateral pulmonary embolism Bipolar depression Chronic back pain Chronic neck pain Colonic polyp Dilated cardiomyopathy DVT (deep venous thrombosis) Essential hypertension GERD (gastroesophageal reflux disease) H/O ischemic left MCA stroke History of alcohol use History of CVA with residual deficit HTN (hypertension) Hyperlipidemia Insomnia Ischemic cardiomyopathy Lactic acidosis Major depression in remission Old SC (myocardial infarction) Peripheral blood vessel disorder Peripheral edema Reactive airway disease Seizure disorder Smoking Surgical History AICD (automatic cardioverter/defibrillator) present History of coronary artery stent placement No history of major surgery within 1 month Family History Mother Alcoholism and drug addiction in family Father Old age Social History household members: none Smoking Status: Current every day smoker alcohol intake: current Assessment & Plan Assessment & Plan narrative: 62 year old male, presented for detox was found to be hypotensive. He responded to fluid boluses, initially placed on antibiotics for possible sepsis though this appears less likely today. Antibiotics were stopped, patient developed worsening withdrawal today placed on librium. 1. Hypotension, resolved -presented with blood pressure initially in 60s -has R IJ placed -never required pressors -improved wt fluid resuscitation -etiology is likely hypovolemia from poor PO intake vs less likely infectious/sepsis -will stop IV fluids and antibiotics -per documentation has history of alcohol cardiomyopathy, so could consider ECHO if hypotension returns 2. Acute metabolic encephalopathy -etiology is intoxication vs wernickes vs cva vs infectious vs postictal -suspect most likely is intoxication / alcohol withdrawal -monitor neuro status as patient reena up and withdrawal clears -ordered high dose thiamine to treat/prevent wernickes, will continue today -suspect less likely acute cva, or seizure or infectious 3. Elevated lactate -presented with lactate of over 5 -secondary to seizure vs sepsis vs thiamine deficiency vs hypovolemia -improved with treatment with fluids and thiamine and antibiotics -suspect patient is probably very hypovolemic with continued alcohol abuse -think this is less likely seizure but can not rule out -lactate resolved to normal 3. Possible colitis -CT showed thickened colon wall -ordered for stool studies -currently having minimal symptoms, with no diarrhea -could be possible source of SIRS and hypotension, however with no symptoms will stop and continue to monitor. 4. EtoH withdrawal -presented with EtOH level > 400 -wants detox -ordered for benzos per [facility] protocol -ordered MVI, thiamine, folate -started librium 5 AM for withdrawal treatment, currently 50 mg TID. 5. Seizuire disorder -continue lamotrigine 6. Depression -continue buspar 7. History of DVT -continue eliquis 8. History of CVA -suspect CT head findings are old -consider MRI for further evaluation, if as he reena up there is more evidence of acute neurologic change CODE: Full Proxy: Greta Nunn, daughter Dispo: inpatient, probable discharge home in 3-4 days depending on etoh withdrawal.
[2022-12-18] MEDS: ATORVASTATIN 20 MG TABLET 40 MG PO (20:27)
[2022-12-19] VITALS (82 sets, daily range): BP systolic 133–163; BP diastolic 67–95; PULSE 65–144; RESP 12–38; TEMP 36–36.6; O2SAT 83–98
[2022-12-19] MEDS: ONDANSETRON 4 MG/2 ML INJ IV (01:09)
[2022-12-19] MEDS: chlordiazePOXIDE 25 MG CAPSULE 50 MG PO ×3 (04:27→20:32)
[2022-12-19 04:31] LABS: Add Manual Diff / Slide Review NO; Basophils Absolute Auto 100 /uL (0-100); Eosinophils Absolute Auto 200 /uL (0-450); Eosinophils Percent Auto 3.1 % (2-4); Hematocrit 34.5 % (41-53); Lymphocytes Absolute Auto 1700 /uL (1100-4500); Mean Corpuscular HGB Conc 34.8 % (30-36); Mean Corpuscular Hemoglobin 34.7 PG (26-34); Mean Corpuscular Volume 99.6 fL (80-100); Monocytes Absolute Auto 500 /uL (0-900); Monocytes Percent Auto 9.7 % (3-14); Neutrophils Absolute Auto 3100 /uL (1500-7000); Neutrophils Percent Auto 55.2 % (50-75); Platelet Count 216 X10^3/uL (150-400); Red Blood Cell Count 3.46 X10^6/uL (4.5-5.9); Red Cell Distribution Width 14.4 % (11.6-14.8); White Blood Cell Count 5.5 X10^3/uL (4.5-11.0)
[2022-12-19 04:38] LABS: Alanine Aminotransferase 30 IU/L (<50); Albumin 3.4 g/dL (3.5-5.0); Albumin Globulin Ratio 1.3 (1.0-2.8); Alkaline Phosphatase 90 U/L (38-126); Aspartate Aminotransferase 50 IU/L (17-59); BUN Creatinine Ratio 7.7 (6-22); Bilirubin Total 0.9 mg/dL (0.2-1.3); Blood Urea Nitrogen 4 mg/dL (9-20); Calcium 7.9 mg/dL (8.4-10.2); Carbon Dioxide 30 mmol/L (22-32); Chloride 101 mmol/L (98-107); Estimated Glomerular Filt Rate > 60 mL/min (>60); Globulin 2.6 g/dL (1.7-4.1); Glucose 92 mg/dL (80-110); HEMOLYSIS 35 (0-50); Magnesium 1.6 mg/dL (1.6-2.3); Potassium 3.8 mmol/L (3.4-5.1); Sodium 133 mmol/L (137-145)
[2022-12-19] MEDS: metroNIDAZOLE 500 MG/100 ML PIGGYBACK 100 MG IV ×3 (05:43→22:12)
[2022-12-19] MEDS: LORazepam 2 MG/ML INJ IV (05:58)
[2022-12-19] MEDS: APIXABAN 5 MG TABLET PO ×2 (08:16→20:33)
[2022-12-19] MEDS: FLUoxetine 10 MG CAPSULE PO (08:16)
[2022-12-19] MEDS: BUSPIRONE 5 MG TABLET 10 MG PO ×3 (08:16→20:32)
[2022-12-19] MEDS: MULTIVITAMIN 1 TABLET 1 TAB PO (08:16)
[2022-12-19] MEDS: lamoTRIgine 100 MG TABLET 200 MG PO ×2 (08:17→20:33)
[2022-12-19] MEDS: FOLIC ACID 1 MG TABLET PO (08:17)
[2022-12-19] MEDS: ASPIRIN EC 81 MG TABLET PO (08:18)
[2022-12-19] MEDS: THIAMINE 500 MG in SODIUM CHLORIDE 0.9% 100 ML 420 MG IV ×3 (09:01→20:34)
--- NOTE | 2022-12-19 09:01 | P.PN_ITS ---
Subjective Subjective Interval history: Patient wants to go home. Only needed 2mg IV ativan overnight. Caregiver worried about his mobility and asking he work with PT. Exam Vital Signs (past 8 hours): - 12/19/22 01:05 12/19/22 01:10 12/19/22 01:15 Temperature Pulse Rate 71 67 78 Respiratory Rate 19 15 19 Blood Pressure Pulse Oximetry 94 95 96 Oxygen Delivery Method 12/19/22 01:20 12/19/22 01:25 12/19/22 01:30 Temperature Pulse Rate 68 67 86 Respiratory Rate 15 21 17 Blood Pressure Pulse Oximetry 94 89 L 90 L Oxygen Delivery Method 12/19/22 01:35 12/19/22 01:40 12/19/22 01:45 Temperature Pulse Rate 81 74 77 Respiratory Rate 17 17 17 Blood Pressure Pulse Oximetry 95 95 94 Oxygen Delivery Method 12/19/22 01:50 12/19/22 01:55 12/19/22 02:00 Temperature Pulse Rate 78 69 Respiratory Rate 19 18 Blood Pressure 139/68 Pulse Oximetry 95 95 Oxygen Delivery Method 12/19/22 02:00 12/19/22 02:05 12/19/22 02:10 Temperature Pulse Rate 75 65 73 Respiratory Rate 17 14 19 Blood Pressure Pulse Oximetry 93 94 95 Oxygen Delivery Method 12/19/22 03:00 12/19/22 03:00 12/19/22 03:00 Temperature Pulse Rate 80 66 Respiratory Rate 16 15 Blood Pressure 134/79 134/79 Pulse Oximetry 95 90 L Oxygen Delivery Method 12/19/22 03:01 12/19/22 04:00 12/19/22 04:00 Temperature Pulse Rate 84 79 Respiratory Rate 25 H 20 Blood Pressure 148/76 H Pulse Oximetry 91 94 95 Oxygen Delivery Method Room Air 12/19/22 04:00 12/19/22 04:00 12/19/22 04:05 Temperature 97.1 F L Pulse Rate 81 80 Respiratory Rate 28 H 22 Blood Pressure 148/76 H 148/76 H Pulse Oximetry 95 96 Oxygen Delivery Method 12/19/22 05:00 12/19/22 05:00 12/19/22 05:05 Temperature Pulse Rate 78 67 Respiratory Rate 20 14 Blood Pressure 145/67 H Pulse Oximetry 93 95 Oxygen Delivery Method 12/19/22 05:10 12/19/22 05:15 12/19/22 05:20 Temperature Pulse Rate 79 85 74 Respiratory Rate 17 23 12 Blood Pressure Pulse Oximetry 97 83 L 94 Oxygen Delivery Method 12/19/22 05:25 12/19/22 05:30 12/19/22 05:35 Temperature Pulse Rate 92 H 82 75 Respiratory Rate 29 H 25 H 23 Blood Pressure 144/70 H Pulse Oximetry 85 L 95 94 Oxygen Delivery Method 12/19/22 05:40 12/19/22 05:45 12/19/22 05:50 Temperature Pulse Rate 86 74 72 Respiratory Rate 21 18 17 Blood Pressure Pulse Oximetry 92 98 95 Oxygen Delivery Method 12/19/22 05:55 12/19/22 06:00 12/19/22 06:00 Temperature Pulse Rate 75 74 Respiratory Rate 16 14 Blood Pressure 144/70 H Pulse Oximetry 93 95 Oxygen Delivery Method 12/19/22 06:05 12/19/22 06:10 12/19/22 06:15 Temperature Pulse Rate 72 80 77 Respiratory Rate 18 22 20 Blood Pressure Pulse Oximetry 94 95 94 Oxygen Delivery Method 12/19/22 06:20 12/19/22 06:26 12/19/22 06:29 Temperature Pulse Rate 70 74 74 Respiratory Rate 16 16 20 Blood Pressure 144/70 H 144/70 H Pulse Oximetry 94 95 Oxygen Delivery Method 12/19/22 06:44 12/19/22 06:30 12/19/22 06:35 Temperature Pulse Rate 76 74 67 Respiratory Rate 19 19 18 Blood Pressure Pulse Oximetry 94 95 93 Oxygen Delivery Method 12/19/22 06:40 12/19/22 06:45 12/19/22 06:50 Temperature Pulse Rate 78 73 69 Respiratory Rate 20 19 17 Blood Pressure Pulse Oximetry 95 93 93 Oxygen Delivery Method 12/19/22 06:55 12/19/22 07:00 12/19/22 07:00 Temperature Pulse Rate 71 79 Respiratory Rate 19 18 Blood Pressure 142/75 H Pulse Oximetry 93 94 Oxygen Delivery Method 12/19/22 07:05 12/19/22 07:10 12/19/22 07:15 Temperature Pulse Rate 84 93 H 85 Respiratory Rate 22 20 24 Blood Pressure Pulse Oximetry 93 Oxygen Delivery Method 12/19/22 07:20 12/19/22 07:25 12/19/22 07:00 Temperature Pulse Rate 74 76 Respiratory Rate 17 19 Blood Pressure Pulse Oximetry Oxygen Delivery Method Room Air 12/19/22 08:53 12/19/22 07:30 12/19/22 07:35 Temperature 96.8 F L Pulse Rate 84 77 Respiratory Rate 23 18 Blood Pressure Pulse Oximetry Oxygen Delivery Method 12/19/22 07:40 12/19/22 07:45 12/19/22 07:50 Temperature Pulse Rate 82 83 74 Respiratory Rate 22 23 16 Blood Pressure Pulse Oximetry Oxygen Delivery Method 12/19/22 07:55 12/19/22 08:00 12/19/22 08:01 Temperature Pulse Rate 69 112 H 112 H Respiratory Rate 17 38 H 36 H Blood Pressure Pulse Oximetry Oxygen Delivery Method 12/19/22 08:01 12/19/22 08:05 12/19/22 08:10 Temperature Pulse Rate 90 80 Respiratory Rate 23 19 Blood Pressure 163/95 H Pulse Oximetry Oxygen Delivery Method 12/19/22 08:15 12/19/22 08:20 12/19/22 08:25 Temperature Pulse Rate 92 H 88 78 Respiratory Rate 21 19 18 Blood Pressure Pulse Oximetry Oxygen Delivery Method 12/19/22 08:30 12/19/22 08:35 12/19/22 08:40 Temperature Pulse Rate 72 79 70 Respiratory Rate 18 18 17 Blood Pressure Pulse Oximetry Oxygen Delivery Method 12/19/22 08:45 12/19/22 08:50 Temperature Pulse Rate 85 80 Respiratory Rate 18 20 Blood Pressure Pulse Oximetry Oxygen Delivery Method Oxygen Delivery Method Room Air Oxygen Flow Rate 3 Narrative Exam Narrative: GEN: chronically ill appearing HEENT: dry mucous membranes CV: RRR, no murmurs PULM: clear bilaterally ABD: soft, nontender, nondistended, no organomegaly EXT: warm and well perfused with no edema NEURO: dysarthria, no other focal deficits noted, + tremors and tongue fasciculations Objective Labs 12/19/22 04:15 12/19/22 04:15 Labs: Laboratory Results - last 24 hr 12/19/22 12/19/22 04:15 04:15 WBC 5.5 D RBC 3.46 L Hgb 12.0 L Hct 34.5 L MCV 99.6 MCH 34.7 H MCHC 34.8 RDW 14.4 Plt Count 216 Neut % (Auto) 55.2 Lymph % (Auto) 30.0 [place] % (Auto) 9.7 Eos % (Auto) 3.1 Baso % (Auto) 2.0 Neut # (Auto) 3100 Lymph # (Auto) 1700 [place] # (Auto) 500 Eos # (Auto) 200 Baso # (Auto) 100 Sodium 133 L Potassium 3.8 Chloride 101 Carbon Dioxide 30 BUN 4 L Creatinine 0.52 L Estimated GFR > 60 BUN/Creatinine Ratio 7.7 Glucose 92 Calcium 7.9 L Magnesium 1.6 Total Bilirubin 0.9 AST 50 ALT 30 Alkaline Phosphatase 90 Total Protein 6.0 L Albumin 3.4 L Globulin 2.6 Albumin/Globulin Ratio 1.3 PFSH Medical History Alcohol abuse Alcohol withdrawal syndrome, with delirium Anxiety Anxiety disorder Aphasia Apical mural thrombus Arrhythmia Bilateral pulmonary embolism Bipolar depression Chronic back pain Chronic neck pain Colonic polyp Dilated cardiomyopathy DVT (deep venous thrombosis) Essential hypertension GERD (gastroesophageal reflux disease) H/O ischemic left MCA stroke History of alcohol use History of CVA with residual deficit HTN (hypertension) Hyperlipidemia Insomnia Ischemic cardiomyopathy Lactic acidosis Major depression in remission [place] (myocardial infarction) Peripheral blood vessel disorder Peripheral edema Reactive airway disease Seizure disorder Smoking Surgical History AICD (automatic cardioverter/defibrillator) present History of coronary artery stent placement No history of major surgery within 1 month Family History Mother Alcoholism and drug addiction in family Father Old age Social History household members: none Smoking Status: Current every day smoker alcohol intake: current Assessment & Plan Assessment & Plan narrative: 62 year old male, presented for detox was found to be hypotensive. He responded to fluid boluses, initially placed on antibiotics for possible sepsis though this appears less likely today. Antibiotics were stopped, patient developed worsening withdrawal today placed on librium. 1. 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 Acute metabolic encephalopathy -etiology is intoxication vs wernickes vs cva vs infectious vs postictal -suspect most likely is intoxication / alcohol withdrawal -monitor neuro status as patient reena up and withdrawal clears -ordered high dose thiamine to treat/prevent wernickes, will continue -suspect less likely acute cva, or seizure or infectious 3. Lactate acidosis, resolved -presented with lactate of over 5 -secondary to seizure vs sepsis vs thiamine deficiency vs hypovolemia -improved with treatment with fluids and thiamine and antibiotics -suspect patient is probably very hypovolemic with continued alcohol abuse -think this is less likely seizure but can not rule out -lactate resolved to normal 3. Possible colitis -CT showed thickened colon wall -ordered for stool studies -currently having minimal symptoms, with no diarrhea -could be possible source of SIRS and hypotension, however with no symptoms will stop and continue to monitor. 4. EtoH withdrawal -presented with EtOH level > 400 -initially wanted detox, but now wants to go home -ordered for benzos per [facility] protocol -ordered MVI, thiamine, folate -started librium 12/18 AM for withdrawal treatment, currently 50 mg TID. 5. Seizuire disorder -continue lamotrigine 6. Depression -continue buspar 7. History of DVT -continue eliquis 8. History of CVA -suspect CT head findings are old -consider MRI for further evaluation, if as he reena up there is more evidence of acute neurologic change CODE: Full Proxy: Greta Nunn, daughter Dispo: Home with on 12/20.
--- NOTE | 2022-12-19 09:34 | PC.NURSE ---
Addendum entered by Quynh Thao R.N. 12/19/22 18:30: Several PIV attempts made by this RN and other RN. Unable to obtain access. Central line dressing changed and integrity assessed. Keeping this access due to failed attempts at peripheral. Original Note: Day shift: Pt verbalizes requests to be discharged, feels as if he is not going through withdrawal. I don't have symptoms. Pt educated on the medications he is receiving for withdrawal and that he may not feel symptoms due to these medications. Pt continues to voice requests to leave. Dr. Lyon notified and aware. Assisted pt to the chair to assess gait and balance. Pt unsteady with use of walker but able to ambulate to chair standby assist. Pt states he is at baseline in gait and ambulation. Care ongoing. Provider to round shortly.
--- NOTE | 2022-12-19 11:09 | CM.DPC ---
DCP Cont: Per MD, pt wanting to discharge home today but unclear if pt is medically stable and through his ETOH withdrawals as he remains tremulous which could be withdrawals vs prior CVA residuals. GENIE called HU and confirmed pt's assigned HU CM is now Art [phone] and Art states pt has a lot of HU hours but only one CG [facility] ([phone]) and they are attempting to get another CG for pt's remaining hours. CG has been assisting pt with his numerous appointments, some for DUI and court appointments and Probation and pt's last Inpt Tx was in May or Jun 2022 a few months ago and pt was able to remain sober for about 3 months. Pt has also tried AA and outpt tx but not recently. Pt voluntarily made the decision to stop drinking and go through detox. SW met bedside with pt and explained role again and pt confirms he was hopeful for d/c home today although he is willing to wait for PT eval to confirm he is safe for home as SW discussed the risk if pt gets home and cannot get up his stairs safely or has GLF with injury. Pt agreeable with GENIE calling his CG [facility] bedside and SW spoke to [facility] and inquired if she could come in for CG training and CG not available today for CG training or to provide transport home but would be available tomorrow Tues around lunchtime if needed. [facility] feels pt needs to remain for further detox as she states historically it takes him 3-5 days. Pt states he does better going up stairs than coming down stairs and agreeable to work with PT and will consider remaining for further tx vs d/c today via medicaid taxi. GENIE updated RN and PT. Plan: SW to follow closely for PT eval and stairs to determine if pt safe for d/c home with HH and no CG until tomrorow. ZAYDA Morales
--- NOTE | 2022-12-19 13:34 | PT.IIE ---
Current Diagnoses Hypotension, unspecified (12/17/22) Surgical History (Last Reviewed 12/18/22 @ 06:02 by Morgan Ortiz MD) AICD (automatic cardioverter/defibrillator) present History of coronary artery stent placement No history of major surgery within 1 month Medical History Alcohol abuse Alcohol withdrawal syndrome, with delirium Anxiety Anxiety disorder Aphasia Apical mural thrombus Arrhythmia Bilateral pulmonary embolism Bipolar depression Chronic back pain Chronic neck pain Colonic polyp Dilated cardiomyopathy DVT (deep venous thrombosis) Essential hypertension GERD (gastroesophageal reflux disease) H/O ischemic left MCA stroke History of alcohol use History of CVA with residual deficit HTN (hypertension) Hyperlipidemia Insomnia Ischemic cardiomyopathy Lactic acidosis Major depression in remission [place] (myocardial infarction) Peripheral blood vessel disorder Peripheral edema Reactive airway disease Seizure disorder Smoking Physical Therapy Inpatient Evaluation/Re-Eval M1 PT/OT-IP Prior Functional Status Start: 12/19/22 10:24 Freq: NEEDED Status: Active Protocol: Document 12/19/22 13:34 AW (Rec: 12/19/22 14:19 AW [id number]) Medical Review Prior Functional Status Medical History Reviewed Yes Communication Pt is soft spoken and has some 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 He has been falling more frequently over the past few months. He has history of CVA's with right sided deficits. Activities of Daily Living and IADL's Pt has a HU caregiver for ~ 6 hours at a time on Tuesdays and . He is in the process of getting more caregiver assist as he is approved for more hours. Caregiver ([facility]) assists with showers, dressing, laundry, cleaning, meal prep, shopping, and transportation. Social History Household Members none Living Arrangements Apartment/Condo Number of Stairs To Enter/Railing? 19 steps with wide bilateral rails up to second floor apartment. Home Environment Standard Height Toilet,Tub/ Shower Home Equipment Raised Toilet Seat w/Armrests, Shower Seat without Backrest, Grab Bars In Shower M2 PT-IP Current Condition Start: 12/19/22 10:24 Freq: NEEDED Status: Active Protocol: Document 12/19/22 13:34 AW (Rec: 12/19/22 14:19 AW [id number]) Physical Therapy Current Condition Current Condition Evaluation Date 12/19/22 Treatment Diagnosis alcohol withdrawal; impaired mobility and gait Onset Date 12/17/22 M3 PT-IP Subjective Start: 12/19/22 10:24 Freq: NEEDED Status: Active Protocol: Document 12/19/22 13:34 AW (Rec: 12/19/22 14:19 AW [id number]) Subjective Physical Therapy Visit Type Type Initial Evaluation Visit Start Time 11:07 Visit Stop Time 13:34 Total Visit Minutes 27 Notes Split visits [id number] and [id number]. On first attempt, pt was not able to maintain wakefulness long enough to meaningfully participate. On return visit, pt was much more alert. Physical Therapy Visit Comments Patient Comments Pt is willing to participate with PT Patient Goals Return home Therapy Pain Assessment Pain When Pain Assessed During Mobility Pain Present Pain Present Denied Pain M4 PT-IP Mobility and Gait Start: 12/19/22 10:24 Freq: NEEDED Status: Active Protocol: Document 12/19/22 13:34 AW (Rec: 12/19/22 14:19 AW [id number]) PT-Transfer Assessment Sit to and From Stand Sit to and from Stand Minimal Assistance,Moderate Assistance,1 Person Assistance ,Use of Upper Extremities Equipment Transfer Assistive Device Gait Belt,Front Wheeled Walker Orthotic/Prosthetic Devices or Brace: No Transfers Transfer Destination Chair,Toilet Transfer Technique Stand Step Pivot Transfer Ability Level of Assist Minimal Assistance Comments Mobility Comments Pt was sitting up in the chair as PT arrived. He expressed interest in using the toilet. Transfer training included instruction in sit to stand technique with pt requiring verbal cues and mod assist to stand from the chair. De was able to use the FWW to steady himself after strong retropulsion in initial standing. He walked to the toilet with cues needed to maintain feet within the walker frame. Gait was generally unsteady with tendency to keep weight on heels, increasing retropulsive tendency. Pt was able to stand before the toilet and pull his briefs down before sitting with CGA for steadiness. Pt completed pericare independently but needed assist to pull up his briefs fully in standing. Pt walked another 20 feet with inconsistent steps and backward lean before transferring back to the chair . Pt was left in the chair with call light in reach and chair alarm on for safety. Gait Assessment Gait Gait Assistance Required: Minimum Assistance Distance (Feet) 20 Assistive Devices Assistive Device Gait Belt,Front Wheeled Walker Orthotic/Prosthetic Devices or Brace: No Gait Deviations General Gait Pattern Ataxic,Wide Based Gait Factors Limiting Gait Function Factors Limiting Gait Function Decreased Sensation,Decreased Strength,Difficulty Following Directions,Incoordination,Poor Balance,Poor Safety Awareness Comments Gait Comments See mobility comments for details. Stair Climbing Assessment Comments Stair Climbing Comments Not assessed. PT-Balance Assessment Sitting Balance and Reactions Static Sitting Balance Ability Good Dynamic Sitting Balance Ability Fair Standing Balance and Reactions Static Standing Balance Ability Fair Dynamic Standing Balance Ability Poor Device Used FWW M5 PT-IP Objective Assessments Start: 12/19/22 10:24 Freq: NEEDED Status: Active Protocol: Document 12/19/22 13:34 AW (Rec: 12/19/22 14:19 AW [id number]) Orientation Orientation/Cognition Level of Alertness Alert Orientation Name,Place,Situation Language Function Ability Word Finding Difficulties Safety Awareness Decreased Safety Awareness Gross Range of Motion Upper Extremity ROM Assessment Right Impaired Impairments flexion contractures wrist and fingers. Lower Extremity ROM Assessment Right Impaired Impairments Lacks active dorsiflexion to neutral. PROM more limited on the right compared with left indicating some degree of contracture. Strength Upper Extremity Strength Assessment Right Impaired Lower Extremity Strength Assessment Right Impaired Hip flexion 4-/5 Knee ext and flex 4-/5 Ankle DF 3-/5 Comments Strength Comments LLE grossly 4/5 Coordination Assessment Gross Coordination Gross Coordination Impaired Assessment Finger to Nose Test Moderate Impairment Pronation/Supination Test Moderate Impairment Foot Tapping Test Moderate Impairment Sensation Assessment Comments Sensation Comments Pt has difficulty following directions for formal assessment. Muscle Tone Muscle Tone WNL No Other Assessments Other Other Assessments Tremors noted BUE. Caregiver states he typically has tremors while actively withdrawing which eventually resolve. M6 PT-IP Treatment Start: 12/19/22 10:24 Freq: NEEDED Status: Active Protocol: Document 12/19/22 13:34 AW (Rec: 12/19/22 14:19 AW [id number]) Physical Therapy Treatment Education Education Provided Safety M7 PT-IP Assessment and Plan Start: 12/19/22 10:24 Freq: NEEDED Status: Active Protocol: Document 12/19/22 13:34 AW (Rec: 12/19/22 14:19 AW [id number]) PT Summary Assessment and Plan Potential Rehabilitation Potential Fair Status of Condition at Evaluation Evolving Summary Impairments ROM,Strength,Balance,Sensation ,Cognition,Bed Mobility, Transfers,Gait Assessment Summary Dionisio is a 62 yo man admitted with acute alcohol withdrawal. PMH includes CAD s/p AICD and CVA with right sided deficits . He lives in a second floor studio apartment with 19 steps to enter. He has caregiver support on Tuesdays and ~6 hours per day. He is currently trying to secure more caregiver hours. CLOF: Pt was found with fluctuating alertness initially. PT returned later and found pt much more alert and able to participate. He was able to follow simple directions but needed min to mod assist for transfers and CGA to min assist for gait with FWW. Anticipate pt will improve his mobility during this hospital stay. Mobility is currently affected by confusion, BUE tremors, and poor safety awareness. PT recommends increased prison support - up to 24/7 assist for mobility - at discharge. Goals Bed Mobility Goal Independent Transfer Goal Independent,Four Wheeled Walker Gait Goal Independent,Four Wheel Walker Gait Distance 75 Other Goals - up/down 19 steps with unilateral rail for safe home entry. Days to Meet Goals 5 Frequency of Treatment Frequency Of Treatment Once a Day Treatment Plan Physical Therapy Treatment Plan Bed Mobility Training,Transfer Training,Gait Training, Therapeutic Exercise,Balance Retraining,Discharge Planning, Hot or Cold Pack,Neuromuscular Re-ed,Coordination Retraining Precautions Other Precautions high falls risk Recommendations To Nursing Amount of Assist Needed 1 Person Assist Discharge Recommendations PT Discharge Recommendations Home with 24/7 Assist Available Transportation Needs at Discharge Private Vehicle
[2022-12-19] MEDS: NICOTINE 21 MG PATCH TOP (13:37)
[2022-12-19] MEDS: ATORVASTATIN 20 MG TABLET 40 MG PO (20:33)
[2022-12-20] VITALS (9 sets, daily range): BP systolic 113–154; BP diastolic 76–96; PULSE 77–99; RESP 17–20; TEMP 36.3–36.6; O2SAT 93–98
[2022-12-20] MEDS: chlordiazePOXIDE 25 MG CAPSULE 50 MG PO ×2 (03:29→12:42)
[2022-12-20] MEDS: metroNIDAZOLE 500 MG/100 ML PIGGYBACK 100 MG IV (05:03)
[2022-12-20 05:22] LABS: Add Manual Diff / Slide Review NO; Basophils Absolute Auto 0 /uL (0-100); Basophils Percent Auto 0.4 % (0-2); Eosinophils Absolute Auto 200 /uL (0-450); Eosinophils Percent Auto 3.6 % (2-4); Hematocrit 35.2 % (41-53); Hemoglobin 12.2 g/dL (13.5-17.5); Lymphocytes Absolute Auto 1300 /uL (1100-4500); Lymphocytes Percent Auto 24.3 % (25-40); Mean Corpuscular HGB Conc 34.5 % (30-36); Mean Corpuscular Hemoglobin 34.2 PG (26-34); Monocytes Absolute Auto 500 /uL (0-900); Monocytes Percent Auto 9.5 % (3-14); Neutrophils Absolute Auto 3400 /uL (1500-7000); Neutrophils Percent Auto 62.2 % (50-75); Platelet Count 208 X10^3/uL (150-400); Red Blood Cell Count 3.56 X10^6/uL (4.5-5.9); Red Cell Distribution Width 14.1 % (11.6-14.8); White Blood Cell Count 5.5 X10^3/uL (4.5-11.0)
[2022-12-20 05:34] LABS: Alanine Aminotransferase 27 IU/L (<50); Albumin 3.4 g/dL (3.5-5.0); Albumin Globulin Ratio 1.4 (1.0-2.8); Alkaline Phosphatase 88 U/L (38-126); Aspartate Aminotransferase 47 IU/L (17-59); Bilirubin Total 0.7 mg/dL (0.2-1.3); Calcium 8.2 mg/dL (8.4-10.2); Carbon Dioxide 30 mmol/L (22-32); Chloride 102 mmol/L (98-107); Estimated Glomerular Filt Rate > 60 mL/min (>60); Globulin 2.5 g/dL (1.7-4.1); Glucose 93 mg/dL (80-110); HEMOLYSIS 26 (0-50); Magnesium 1.4 mg/dL (1.6-2.3); Potassium 3.2 mmol/L (3.4-5.1); Sodium 135 mmol/L (137-145); Total Protein 5.9 g/dL (6.3-8.2)
[2022-12-20 05:40] LABS: BUN Creatinine Ratio 3.9 (6-22); Blood Urea Nitrogen 2 mg/dL (9-20)
[2022-12-20] MEDS: APIXABAN 5 MG TABLET PO ×2 (08:28→21:27)
[2022-12-20] MEDS: BUSPIRONE 5 MG TABLET 10 MG PO ×2 (08:28→21:26)
[2022-12-20] MEDS: ASPIRIN EC 81 MG TABLET PO (08:28)
[2022-12-20] MEDS: FOLIC ACID 1 MG TABLET PO (08:28)
[2022-12-20] MEDS: MULTIVITAMIN 1 TABLET 1 TAB PO (08:28)
[2022-12-20] MEDS: FLUoxetine 10 MG CAPSULE PO (08:28)
[2022-12-20] MEDS: lamoTRIgine 100 MG TABLET 200 MG PO ×2 (08:30→21:26)
[2022-12-20] MEDS: NICOTINE 21 MG PATCH TOP (08:30)
[2022-12-20] MEDS: THIAMINE 500 MG in SODIUM CHLORIDE 0.9% 100 ML 420 MG IV (08:44)
[2022-12-20] MEDS: POTASSIUM CHLORIDE 20 MEQ TAB 40 MEQ PO ×3 (10:14→17:14)
[2022-12-20] MEDS: MAGNESIUM SULFATE 4 GM/100 ML PIGGYBACK IV (10:14)
--- NOTE | 2022-12-20 12:14 | P.DS_ITS ---
History of Present Illness History of Present Illness Date Patient Seen: 12/17/22 Time Patient Seen: 20:00 Chief complaint: ETOH Narrative: Mr. Nunn is a 62M with PMH Etoh abuse with history of withdrawals, seizure disorder, DVT, CVA who presents requesting detox. He is confused and has noted dysarthria, which he states is chronic for him. He states he has drank for his whole life. He drinks 750cc vodka in 2-3 days, last drink this morning. He last was sober for a prolonged period of time a few years ago. However he also been generally feeling unwell with weakness and falls. Otherwise he denies vomiting, diarrhea, cough, shortness of breath, abdominal pain. In the ED workup was done, vitals notable for afebrible, heart rate 100s, blood pressure 60s/40s, sats 95% on room air, transiently was hypoxic while hypotensive. Labs reviewed by me and notable for WBC 3.9, hgb 13.1, plts 276. Na 142, k 3.3, creatinine 0.63. Lactate 5.2->2.5. Mag 1.5. AST/ALT 70/36, bili 0.3. UA negative. Drug screen negative. EtOH 407. Ketones 0.11. CT head showed small chronic vs subacute left frontal infarct. Chest xray reviewed by me and showed no acute process. Ct abdomen showed thickening of the right colon of unclear etiology. He was ordered for antibiotics, IV fluids and thiamine. He had R IJ placed. He responded well to fluids with improvement in his blood pressure and was admitted for further treatment. Discharge Providers Provider Date of admission: 12/17/22 20:36 Discharge Date: 12/20/22 Consults: 12/19/22 09:53 Consult to Physical Therapy Evaluate & Treat Comment: Prior to discharge Physician Instructions: Evaluate and Treat Discharge provider: Oscar Lyon DO Summary Hospital Course Discharge Diagnosis: 1. 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 Acute metabolic encephalopathy, resolved -etiology is intoxication vs wernickes vs cva vs infectious vs postictal -suspect most likely is intoxication / alcohol withdrawal -monitor neuro status as patient reena up and withdrawal clears -ordered high dose thiamine to treat/prevent wernickes, will continue -suspect less likely acute cva, or seizure or infectious -PT cleared for home with 3. Lactate acidosis, resolved -presented with lactate of over 5 -secondary to seizure vs sepsis vs thiamine deficiency vs hypovolemia -improved with treatment with fluids and thiamine and antibiotics -suspect patient is probably very hypovolemic with continued alcohol abuse -think this is less likely seizure but can not rule out -lactate resolved to normal 3. Possible colitis -CT showed thickened colon wall -ordered for stool studies, they were negative -currently having minimal symptoms, with no diarrhea -could be possible source of SIRS and hypotension, however with no symptoms will stop and continue to monitor. 4. EtoH withdrawal -presented with EtOH level > 400 -initially wanted detox, but now wants to go home -ordered for benzos per [facility] protocol -ordered MVI, thiamine, folate -started librium 5 AM for withdrawal treatment, currently 50 mg TID. -dc home on librium taper and naltrexone 50mg daily to reduce future alcohol cravings 5. Seizuire disorder -continue lamotrigine 6. Depression -continue buspar 7. History of DVT -continue eliquis 8. History of CVA -suspect CT head findings are old -consider MRI for further evaluation, if as he reena up there is more evidence of acute neurologic change Hospital Course: 62 year old male, presented for detox was found to be hypotensive. He responded to fluid boluses, initially placed on antibiotics for possible sepsis though this appears less likely. Antibiotics were stopped, patient developed worsening withdrawal placed on librium and IV ativan. This improved and he was able to dc home with librium taper. Also put on daily naltrexone which patient agreed to try to reduce alcohol cravings. He will try to get into AA meetings. Home health arranged. Time Spent with Patient Time spent: Greater than 30 minutes Exam Vital Signs (past 8 hours): - 12/20/22 09:06 Temperature 98 F Pulse Rate 80 Respiratory Rate 17 Blood Pressure 154/96 H Pulse Oximetry 98 Oxygen Flow Rate 0 Oxygen Delivery Method Room Air Oxygen Flow Rate 0 Narrative Exam Narrative: GEN: chronically ill appearing HEENT: dry mucous membranes CV: RRR, no murmurs PULM: clear bilaterally ABD: soft, nontender, nondistended, no organomegaly EXT: warm and well perfused with no edema NEURO: dysarthria, no other focal deficits noted, + tremors and tongue fasciculations Objective Labs 12/20/22 05:06 12/20/22 05:06 Labs: Laboratory Results - last 24 hr 12/20/22 12/20/22 05:06 05:06 WBC 5.5 RBC 3.56 L Hgb 12.2 L Hct 35.2 L MCV 99.0 MCH 34.2 H MCHC 34.5 RDW 14.1 Plt Count 208 Neut % (Auto) 62.2 Lymph % (Auto) 24.3 L [place] % (Auto) 9.5 Eos % (Auto) 3.6 Baso % (Auto) 0.4 Neut # (Auto) 3400 Lymph # (Auto) 1300 [place] # (Auto) 500 Eos # (Auto) 200 Baso # (Auto) 0 Sodium 135 L Potassium 3.2 L Chloride 102 Carbon Dioxide 30 BUN 2 L Creatinine 0.51 L Estimated GFR > 60 BUN/Creatinine Ratio 3.9 L Glucose 93 Calcium 8.2 L Magnesium 1.4 L Total Bilirubin 0.7 AST 47 ALT 27 Alkaline Phosphatase 88 Total Protein 5.9 L Albumin 3.4 L Globulin 2.5 Albumin/Globulin Ratio 1.4 PFSH Medical History Alcohol abuse Alcohol withdrawal syndrome, with delirium Anxiety Anxiety disorder Aphasia Apical mural thrombus Arrhythmia Bilateral pulmonary embolism Bipolar depression Chronic back pain Chronic neck pain Colonic polyp Dilated cardiomyopathy DVT (deep venous thrombosis) Essential hypertension GERD (gastroesophageal reflux disease) H/O ischemic left MCA stroke History of alcohol use History of CVA with residual deficit HTN (hypertension) Hyperlipidemia Insomnia Ischemic cardiomyopathy Lactic acidosis Major depression in remission [place] (myocardial infarction) Peripheral blood vessel disorder Peripheral edema Reactive airway disease Seizure disorder Smoking Surgical History AICD (automatic cardioverter/defibrillator) present History of coronary artery stent placement No history of major surgery within 1 month Family History Mother Alcoholism and drug addiction in family Father Old age Social History household members: none Smoking Status: Current every day smoker alcohol intake: current Discharge Plan Discharge Plan Patient Disposition: Home Health Service Provider Discharge Comment: You were admitted for alcohol withdrawals. This improved with medications. You will now be on a taper of librium to prevent further withdrawals. I've also started a daily medication which will help prevent future alcohol cravings. Discharge orders & Medications Prescriptions: New chlordiazepoxide HCl 25 mg capsule See Rx Instructions .ROUTE .COMPLEX Qty: 6 0RF Rx Instructions: 25 mg orally 3 times daily for 1 day, then 25mg twice daily for 1 day, then 25mg once daily for 1 day then stop naltrexone 50 mg tablet 50 mg PO DAILY Qty: 30 0RF Continued atenolol 25 mg tablet 25 mg PO BID atorvastatin 40 mg tablet 40 mg PO DAILY fluoxetine 10 mg capsule 10 mg PO DAILY buspirone 10 mg tablet 10 mg PO TID lamotrigine 200 mg tablet 200 mg PO BID cetirizine 10 mg tablet 10 mg PO DAILY trazodone 100 mg tablet 200 mg PO BEDTIME omeprazole 20 mg capsule,delayed release(DR/EC) 20 mg PO 0600 lisinopril 5 mg tablet 5 mg PO DAILY albuterol 90 mcg/actuation Aerosol 180 mcg INHALATION Q4HR PRN (Reason: Wheezing) polyethylene glycol 3350 17 gram/dose powder 17 g PO DAILY PRN (Reason: Constipation) Vitamin Plus Low Iron 27 mg iron- 1 mg tablet 1 tab PO DAILY Eliquis 5 mg tablet 5 mg PO BID Visit Report/Discharge Packet Stand Alone Forms: Patient Portal/API, Stroke Signs & Symptoms
--- NOTE | 2022-12-20 14:21 | CM.DPC ---
Addendum entered by ZAYDA Morales 12/20/22 16:45: ADD: Per PT and CG during CG training, pt unsafe for d/c home without 24/7 assist as pt barely ambulating and not independent. GENIE met bedside with pt, PT, CG and RN and discussed at length options and barriers. CG feels SNF needed, pt somewhat reluctantly would be agreeable but wants home but confirmed no one to stay with pt at d/c. GENIE discussed barrier of [facility] insurance to SNF placement but pt begrudgingly agreeable to remain tonight for plan A) d/c home tomorrow Wed with [facility] referral already in place for RN/PT/OT/ST/[facility] vs 2) SNF referrals faxed tonight to [facility], [facility], [facility]. GENIE called [facility] and confirmed they are not contracted with [facility] but slight potential that if any contracted SNFs decline pt, [facility] does well with one time contracts for SNFs. GENIE updated RN and MD. Pt to remain tonight and further detox and PT and nursing care to determine discharge plan for tomorrow HH vs SNF. BF Original Note: DCP Discharge Home with HH Per MD, pt is medically stable to d/c and pt still declines SNF and his insurance is a barrier to SNF as well. GENIE met bedside with pt and called his HU CG Isrrael and confirmed she still plans to be bedside today for CG training with PT but has been held up unexpectedly with another client but will arrive this afternoon. GENIE confirmed with pt that he is agreeable to HH and preference is [facility] and he feels he would benefit from RN/PT/OT/ST/[facility]WE[facility]EL[facility] and confirms his PCP is Dr. Cummins. Pt's meds are through [facility] as he typically gets bubble packs and his two new scripts were also sent to [facility]. BONG [place] kindly faxed new referral to [facility] and F2F completed and orders placed. Plan: Patient to d/c home today via HU CG POV after she arrives bedside, and possibly participates in CG training pending what time she arrives, and new [facility] referral made. ZAYDA Morales
--- NOTE | 2022-12-20 15:30 | PT.IPTN ---
Current Diagnoses Hypotension, unspecified (12/17/22) Physical Therapy Treatment Note M2 PT-IP Current Condition Start: 12/19/22 10:24 Freq: NEEDED Status: Active Protocol: Document 12/19/22 13:34 AW (Rec: 12/19/22 14:19 AW [id number]) Physical Therapy Current Condition Current Condition Evaluation Date 12/19/22 Treatment Diagnosis alcohol withdrawal; impaired mobility and gait Onset Date 12/17/22 M3 PT-IP Subjective Start: 12/19/22 10:24 Freq: NEEDED Status: Active Protocol: Document 12/20/22 16:10 TS (Rec: 12/20/22 16:40 TS [id number]) Subjective Physical Therapy Visit Type Type Treatment Note Visit Start Time 15:30 Visit Stop Time 16:07 Total Visit Minutes 37 Notes Caregiver training. Physical Therapy Visit Comments Patient Comments Pt reports wanting to go home and doesn't see what another day in the hospital will do for him, he is agreeable to work with PT. Patient Goals Return home M4 PT-IP Mobility and Gait Start: 12/19/22 10:24 Freq: NEEDED Status: Active Protocol: Document 12/20/22 16:10 TS (Rec: 12/20/22 16:40 TS [id number]) PT-Bed Mobility Assessment Supine to Sit Supine to Sit Standby Assistance Scooting Scooting to Edge of Bed Moderate Assistance PT-Transfer Assessment Sit to and From Stand Sit to and from Stand Moderate Assistance,Maximum Assistance,1 Person Assistance ,Use of Upper Extremities Equipment Transfer Assistive Device Gait Belt,Front Wheeled Walker Orthotic/Prosthetic Devices or Brace: No Comments Mobility Comments Pt found resting in bed, agreeable to PT. Supine to sit SBA with HOB elevated, provided cues for BUE support. Pt scooted to EOB ModA for feet flat on floor. Sit to stand w/FWW ModA/MaxA, pt heavily retroleans, very tremulous and hand over hand assist for UEs on FWW. Pt ambulated ~25' in room ModA/ MaxA, continues to be very tremulous with retroleaning, requires Max cueing for FWW management. Stand to sit ModA in chair, impulsive to sit down before it is safe to, unable to follow cues from therapist. Pt was left in chair with call light nearby, caregiver and SW in room. Gait Assessment Gait Gait Assistance Required: Moderate Assistance,Maximum Assistance Distance (Feet) 25 Assistive Devices Assistive Device Gait Belt,Front Wheeled Walker Orthotic/Prosthetic Devices or Brace: No Gait Deviations General Gait Pattern Ataxic,Lateral Trunk Lean,Wide Based Gait Factors Limiting Gait Function Factors Limiting Gait Function Decreased Sensation,Decreased Strength,Difficulty Following Directions,Incoordination,Poor Balance,Poor Safety Awareness Comments Gait Comments See mobility comments for details. Stair Climbing Assessment Comments Stair Climbing Comments Not assessed. PT-Balance Assessment Sitting Balance and Reactions Static Sitting Balance Ability Good Dynamic Sitting Balance Ability Fair Standing Balance and Reactions Static Standing Balance Ability Poor Dynamic Standing Balance Ability Poor Device Used FWW Comments Other Balance Tests/Deviations/Treatment Static standing balance is : poor, requires ModA/MaxA, is very tremulous. M5 PT-IP Objective Assessments Start: 12/19/22 10:24 Freq: NEEDED Status: Active Protocol: Document 12/19/22 13:34 AW (Rec: 12/19/22 14:19 AW [id number]) Orientation Orientation/Cognition Level of Alertness Alert Orientation Name,Place,Situation Language Function Ability Word Finding Difficulties Safety Awareness Decreased Safety Awareness Gross Range of Motion Upper Extremity ROM Assessment Right Impaired Impairments flexion contractures wrist and fingers. Lower Extremity ROM Assessment Right Impaired Impairments Lacks active dorsiflexion to neutral. PROM more limited on the right compared with left indicating some degree of contracture. Strength Upper Extremity Strength Assessment Right Impaired Lower Extremity Strength Assessment Right Impaired Hip flexion 4-/5 Knee ext and flex 4-/5 Ankle DF 3-/5 Comments Strength Comments LLE grossly 4/5 Coordination Assessment Gross Coordination Gross Coordination Impaired Assessment Finger to Nose Test Moderate Impairment Pronation/Supination Test Moderate Impairment Foot Tapping Test Moderate Impairment Sensation Assessment Comments Sensation Comments Pt has difficulty following directions for formal assessment. Muscle Tone Muscle Tone WNL No Other Assessments Other Other Assessments Tremors noted BUE. Caregiver states he typically has tremors while actively withdrawing which eventually resolve. M6 PT-IP Treatment Start: 12/19/22 10:24 Freq: NEEDED Status: Active Protocol: Document 12/20/22 16:10 TS (Rec: 12/20/22 16:40 TS [id number]) Physical Therapy Treatment Education Education Provided Safety M7 PT-IP Assessment and Plan Start: 12/19/22 10:24 Freq: NEEDED Status: Active Protocol: Document 12/20/22 16:10 TS (Rec: 12/20/22 16:40 TS [id number]) PT Summary Assessment and Plan Potential Rehabilitation Potential Fair Summary Impairments ROM,Strength,Balance,Sensation ,Cognition,Bed Mobility, Transfers,Gait Assessment Summary Pt continues to be very tremulous with mobility. He is SBA for supine to sit with HOB elevated and requires ModA for scooting to EOB. He requires ModA/MaxA for sit to stands and for ambulation. Pt is impulsive to move and has some difficulty following instructions from therapist, requires Max cueing for tasks. He has poor safety awareness with mobility, attempts to sit before safe doing so. Pt could not progress to stairs this session due to being unsafe at this time. PT recommends SNF rehab vs 24/ assist at home, pt remains high falls risk. Goals Bed Mobility Goal Independent Transfer Goal Independent,Four Wheeled Walker Gait Goal Independent,Four Wheel Walker Gait Distance 75 Other Goals - up/down 19 steps with unilateral rail for safe home entry. Days to Meet Goals 5 Frequency of Treatment Frequency Of Treatment Once a Day Treatment Plan Physical Therapy Treatment Plan Bed Mobility Training,Transfer Training,Gait Training, Therapeutic Exercise,Balance Retraining,Discharge Planning, Hot or Cold Pack,Neuromuscular Re-ed,Coordination Retraining Precautions Other Precautions high falls risk Recommendations To Nursing Amount of Assist Needed 1 Person Assist Discharge Recommendations PT Discharge Recommendations Home with 24/7 Assist Available,SNF Rehab,Home vs SNF Transportation Needs at Discharge Private Vehicle
--- NOTE | 2022-12-20 16:40 | PM.PN.1 ---
Subjective Subjective Interval history: Patient worked with PT and was mod-max assist. They are now recommending SNF. ENDS BREAKAGE CLERK working on referrals. Patient willing to go. Exam Vital Signs (past 8 hours): - 12/20/22 09:06 12/20/22 12:00 12/20/22 15:00 Temperature 98 F 97.6 F Pulse Rate 80 78 Respiratory Rate 17 17 Blood Pressure 154/96 H 133/76 Pulse Oximetry 98 94 96 Oxygen Delivery Method Room Air Oxygen Flow Rate 0 0 0 12/20/22 16:00 Temperature Pulse Rate Respiratory Rate Blood Pressure Pulse Oximetry 93 Oxygen Delivery Method Room Air Oxygen Flow Rate 0 Oxygen Delivery Method Room Air Oxygen Flow Rate 0 Narrative Exam Narrative: GEN: chronically ill appearing HEENT: dry mucous membranes CV: RRR, no murmurs PULM: clear bilaterally ABD: soft, nontender, nondistended, no organomegaly EXT: warm and well perfused with no edema NEURO: dysarthria, no other focal deficits noted, + tremors Objective Labs 12/20/22 05:06 12/20/22 05:06 Labs: Laboratory Results - last 24 hr 12/20/22 12/20/22 05:06 05:06 WBC 5.5 RBC 3.56 L Hgb 12.2 L Hct 35.2 L MCV 99.0 MCH 34.2 H MCHC 34.5 RDW 14.1 Plt Count 208 Neut % (Auto) 62.2 Lymph % (Auto) 24.3 L [place] % (Auto) 9.5 Eos % (Auto) 3.6 Baso % (Auto) 0.4 Neut # (Auto) 3400 Lymph # (Auto) 1300 [place] # (Auto) 500 Eos # (Auto) 200 Baso # (Auto) 0 Sodium 135 L Potassium 3.2 L Chloride 102 Carbon Dioxide 30 BUN 2 L Creatinine 0.51 L Estimated GFR > 60 BUN/Creatinine Ratio 3.9 L Glucose 93 Calcium 8.2 L Magnesium 1.4 L Total Bilirubin 0.7 AST 47 ALT 27 Alkaline Phosphatase 88 Total Protein 5.9 L Albumin 3.4 L Globulin 2.5 Albumin/Globulin Ratio 1.4 PFSH Medical History Alcohol abuse Alcohol withdrawal syndrome, with delirium Anxiety Anxiety disorder Aphasia Apical mural thrombus Arrhythmia Bilateral pulmonary embolism Bipolar depression Chronic back pain Chronic neck pain Colonic polyp Dilated cardiomyopathy DVT (deep venous thrombosis) Essential hypertension GERD (gastroesophageal reflux disease) H/O ischemic left MCA stroke History of alcohol use History of CVA with residual deficit HTN (hypertension) Hyperlipidemia Insomnia Ischemic cardiomyopathy Lactic acidosis Major depression in remission [place] (myocardial infarction) Peripheral blood vessel disorder Peripheral edema Reactive airway disease Seizure disorder Smoking Surgical History AICD (automatic cardioverter/defibrillator) present History of coronary artery stent placement No history of major surgery within 1 month Family History Mother Alcoholism and drug addiction in family Father Old age Social History household members: none Smoking Status: Current every day smoker alcohol intake: current Assessment & Plan Assessment & Plan narrative: 62 year old male, presented for detox was found to be hypotensive. He responded to fluid boluses, initially placed on antibiotics for possible sepsis though this appears less likely today. Antibiotics were stopped, patient developed worsening withdrawal today placed on librium. 1. 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 Acute metabolic encephalopathy -etiology is intoxication vs wernickes vs cva vs infectious vs postictal -suspect most likely is intoxication / alcohol withdrawal -monitor neuro status as patient reena up and withdrawal clears -ordered high dose thiamine to treat/prevent wernickes, will continue -suspect less likely acute cva, or seizure or infectious 3. Lactate acidosis, resolved -presented with lactate of over 5 -secondary to seizure vs sepsis vs thiamine deficiency vs hypovolemia -improved with treatment with fluids and thiamine and antibiotics -suspect patient is probably very hypovolemic with continued alcohol abuse -think this is less likely seizure but can not rule out -lactate resolved to normal 3. Possible colitis -CT showed thickened colon wall -ordered for stool studies -currently having minimal symptoms, with no diarrhea -could be possible source of SIRS and hypotension, however with no symptoms will stop and continue to monitor. 4. EtoH withdrawal -presented with EtOH level > 400 -initially wanted detox, but now wants to go home -ordered for benzos per [facility] protocol -ordered MVI, thiamine, folate -started librium 12/18 AM for withdrawal treatment, currently 50 mg TID. -start taper to 25 TID 5. Seizuire disorder -continue lamotrigine 6. Depression -continue buspar 7. History of DVT -continue eliquis 8. History of CVA -suspect CT head findings are old -consider MRI for further evaluation, if as he reena up there is more evidence of acute neurologic change CODE: Full Proxy: Greta Hernándezer, daughter Dispo: Pending SNF referrals.
[2022-12-20] MEDS: ATORVASTATIN 20 MG TABLET 40 MG PO (21:26)
[2022-12-20] MEDS: chlordiazePOXIDE 25 MG CAPSULE PO (21:27)
[2022-12-20] MEDS: TRAZODONE 50 MG TABLET 200 MG PO (21:27)
[2022-12-21] VITALS: O2SAT 93
[2022-12-21 04:00] VITALS: BP 108/69; PULSE 84; RESP 16; TEMP 36.2; O2SAT 93; O2SAT 95
[2022-12-21 04:42] LABS: Add Manual Diff / Slide Review NO; Basophils Absolute Auto 100 /uL (0-100); Basophils Percent Auto 1.5 % (0-2); Eosinophils Absolute Auto 200 /uL (0-450); Eosinophils Percent Auto 3.8 % (2-4); Hematocrit 37.9 % (41-53); Lymphocytes Absolute Auto 1000 /uL (1100-4500); Mean Corpuscular HGB Conc 34.2 % (30-36); Mean Corpuscular Hemoglobin 34.1 PG (26-34); Mean Corpuscular Volume 99.6 fL (80-100); Monocytes Absolute Auto 300 /uL (0-900); Monocytes Percent Auto 6.6 % (3-14); Neutrophils Absolute Auto 3100 /uL (1500-7000); Neutrophils Percent Auto 66.1 % (50-75); Platelet Count 221 X10^3/uL (150-400); Red Blood Cell Count 3.81 X10^6/uL (4.5-5.9); Red Cell Distribution Width 14.3 % (11.6-14.8); White Blood Cell Count 4.7 X10^3/uL (4.5-11.0)
[2022-12-21 04:47] LABS: Alanine Aminotransferase 28 IU/L (<50); Albumin 3.4 g/dL (3.5-5.0); Albumin Globulin Ratio 1.3 (1.0-2.8); Alkaline Phosphatase 96 U/L (38-126); Aspartate Aminotransferase 44 IU/L (17-59); BUN Creatinine Ratio 5.5 (6-22); Bilirubin Total 0.6 mg/dL (0.2-1.3); Blood Urea Nitrogen 3 mg/dL (9-20); Calcium 8.6 mg/dL (8.4-10.2); Carbon Dioxide 28 mmol/L (22-32); Chloride 105 mmol/L (98-107); Estimated Glomerular Filt Rate > 60 mL/min (>60); Globulin 2.6 g/dL (1.7-4.1); Glucose 91 mg/dL (80-110); HEMOLYSIS < 15 (0-50); Magnesium 1.8 mg/dL (1.6-2.3); Sodium 136 mmol/L (137-145)
--- NOTE | 2022-12-21 07:37 | PC.NURSE ---
Late entry: 12/18/22 1735: 2mg IV Ativan administration not saved in [facility]
[2022-12-21 08:00] VITALS: BP 137/81; PULSE 111; RESP 17; TEMP 36.3; O2SAT 96; O2SAT 97
[2022-12-21] MEDS: BUSPIRONE 5 MG TABLET 10 MG PO (08:29)
[2022-12-21] MEDS: NICOTINE 21 MG PATCH TOP (08:29)
[2022-12-21] MEDS: THIAMINE 100 MG TABLET PO (08:29)
[2022-12-21] MEDS: FLUoxetine 10 MG CAPSULE PO (08:29)
[2022-12-21] MEDS: chlordiazePOXIDE 25 MG CAPSULE PO (08:29)
[2022-12-21] MEDS: ASPIRIN EC 81 MG TABLET PO (08:29)
[2022-12-21] MEDS: MULTIVITAMIN 1 TABLET 1 TAB PO (08:29)
[2022-12-21] MEDS: FOLIC ACID 1 MG TABLET PO (08:29)
[2022-12-21] MEDS: APIXABAN 5 MG TABLET PO (08:29)
[2022-12-21] MEDS: lamoTRIgine 100 MG TABLET 200 MG PO (08:33)
--- NOTE | 2022-12-21 09:08 | CM.DPNOTE ---
Addendum entered by Shelly Gann, [facility] [place]21[place]22 13:37: ADD: [facility] [place] home- [facility] swing beds- [facility] for review this morning, haven't heard back from Ema Addendum entered by Shelly Gann, [facility] [place]/21/22 09:38: ADD: [place] would consider only with a one time contract through [facility]. Per Hilda in admissions, [facility], in addition, they cannot use patient's MOLINA w/o first getting an approval or denial from [facility] Addendum entered by Shelly Gann, [facility] 12/21/22 09:37: ADD: Ladan Glaser [facility] Not contracted with [facility] Original Note: DCP Note [facility] MV- No. Cannot accept managed MOLINA and if SNF uses patient's secondary unmanaged Medicaid they will not get reimbursement for therapies, it will only be a stay for room and board JW
--- NOTE | 2022-12-21 11:35 | PT.IPTN ---
Current Diagnoses Hypotension, unspecified (12/17/22) Physical Therapy Treatment Note M2 PT-IP Current Condition Start: 12/19/22 10:24 Freq: NEEDED Status: Active Protocol: Document 12/19/22 13:34 AW (Rec: 12/19/22 14:19 AW [id number]) Physical Therapy Current Condition Current Condition Evaluation Date 12/19/22 Treatment Diagnosis alcohol withdrawal; impaired mobility and gait Onset Date 12/17/22 M3 PT-IP Subjective Start: 12/19/22 10:24 Freq: NEEDED Status: Active Protocol: Document 12/21/22 12:08 TS (Rec: 12/21/22 12:31 TS [id number]) Subjective Physical Therapy Visit Type Type Treatment Note Visit Start Time 11:35 Visit Stop Time 12:01 Total Visit Minutes 26 Physical Therapy Visit Comments Patient Comments Pt found asleep in bed, alert when awakened, agreeable to PT . Patient Goals Return home M4 PT-IP Mobility and Gait Start: 12/19/22 10:24 Freq: NEEDED Status: Active Protocol: Document 12/21/22 12:08 TS (Rec: 12/21/22 12:31 TS [id number]) PT-Bed Mobility Assessment Supine to Sit Supine to Sit Standby Assistance Scooting Scooting to Edge of Bed Standby Assistance PT-Transfer Assessment Sit to and From Stand Sit to and from Stand Standby Assistance,Minimal Assistance,1 Person Assistance ,Use of Upper Extremities Equipment Transfer Assistive Device Gait Belt,Front Wheeled Walker Orthotic/Prosthetic Devices or Brace: No Comments Mobility Comments Pt found resting in bed, agreeable to PT. Supine to sit HOB elevated SBA with BUE support. Scooted to EOB SBA with increased effort, required cues for feet flat. Sit to stand x1 SBA with FWW, difficulty grasping with RUE on FWW, requires hand over hand assist. Pt ambulated in room/hallway ~200' SBA, unsteady, tremors/ataxia, cues for inside FWW, pt reports he prefers R foot outside FWW, no buckling or LOB. Sit to stand x1, pt attempting to use momentum to stand required Rose. Back in room he performed stairs with step stool x19 CGA/Rose for balance , x1 LOB decsending from step. Pt was left in chair with call light nearby, chair alarm on, nursing notified. Gait Assessment Gait Gait Assistance Required: Standby Assistance Distance (Feet) 200 Assistive Devices Assistive Device Gait Belt,Front Wheeled Walker Orthotic/Prosthetic Devices or Brace: No Gait Deviations General Gait Pattern Ataxic,Lateral Trunk Lean,Wide Based Gait Factors Limiting Gait Function Factors Limiting Gait Function Decreased Sensation,Decreased Strength,Difficulty Following Directions,Incoordination,Poor Balance,Poor Safety Awareness Comments Gait Comments See mobility comments. Stair Climbing Assessment Evaluation Level of Assist On Stairs Contact Guard Assistance, Minimal Assistance Devices Stair Climbing Assistive Devices Left Railing Technique/Endurance Stair Climbing Direction Ascend and Descend Stair Climbing Technique Step to Step Number of Steps Climbed 19 Comments Stair Climbing Comments See mobility comments. PT-Balance Assessment Sitting Balance and Reactions Static Sitting Balance Ability Good Dynamic Sitting Balance Ability Fair Standing Balance and Reactions Static Standing Balance Ability Fair Dynamic Standing Balance Ability Poor Device Used FWW Comments Other Balance Tests/Deviations/Treatment Standing balance much improved : from previous treatment, required SBA. M5 PT-IP Objective Assessments Start: 12/19/22 10:24 Freq: NEEDED Status: Active Protocol: Document 12/19/22 13:34 AW (Rec: 12/19/22 14:19 AW [id number]) Orientation Orientation/Cognition Level of Alertness Alert Orientation Name,Place,Situation Language Function Ability Word Finding Difficulties Safety Awareness Decreased Safety Awareness Gross Range of Motion Upper Extremity ROM Assessment Right Impaired Impairments flexion contractures wrist and fingers. Lower Extremity ROM Assessment Right Impaired Impairments Lacks active dorsiflexion to neutral. PROM more limited on the right compared with left indicating some degree of contracture. Strength Upper Extremity Strength Assessment Right Impaired Lower Extremity Strength Assessment Right Impaired Hip flexion 4-/5 Knee ext and flex 4-/5 Ankle DF 3-/5 Comments Strength Comments LLE grossly 4/5 Coordination Assessment Gross Coordination Gross Coordination Impaired Assessment Finger to Nose Test Moderate Impairment Pronation/Supination Test Moderate Impairment Foot Tapping Test Moderate Impairment Sensation Assessment Comments Sensation Comments Pt has difficulty following directions for formal assessment. Muscle Tone Muscle Tone WNL No Other Assessments Other Other Assessments Tremors noted BUE. Caregiver states he typically has tremors while actively withdrawing which eventually resolve. M6 PT-IP Treatment Start: 12/19/22 10:24 Freq: NEEDED Status: Active Protocol: Document 12/21/22 12:08 TS (Rec: 12/21/22 12:31 TS [id number]) Physical Therapy Treatment Education Education Provided Safety M7 PT-IP Assessment and Plan Start: 12/19/22 10:24 Freq: NEEDED Status: Active Protocol: Document 12/21/22 12:08 TS (Rec: 12/21/22 12:31 TS [id number]) PT Summary Assessment and Plan Potential Rehabilitation Potential Fair Summary Impairments ROM,Strength,Balance,Sensation ,Cognition,Bed Mobility, Transfers,Gait Progress Towards Goals Progressing Toward Goals Assessment Summary Pt is progressing well with his mobility this session and demonstrating increased activity tolerance. He is SBA for bed mobility, sit to stand x1 SBA, required Rose for 2nd sit to stand, pt attempted to use momentum to stand but unsuccessful. He progressed his ambulation to ~200' in hallway SBA, remains unsteady and with decreased ataxia this session, requires cues for staying in FWW. He performed stairs x19 CGA/Rose for x1 posterior LOB with LUE handrail assist. PT recommends SNF vs 24/7 assist available at home with HHPT. Pt would benefit from continued skilled therapy to progress bed mobility, transfers and gait. Goals Bed Mobility Goal Independent Transfer Goal Independent,Four Wheeled Walker Gait Goal Independent,Four Wheel Walker Gait Distance 75 Other Goals - up/down 19 steps with unilateral rail for safe home entry. Days to Meet Goals 5 Frequency of Treatment Frequency Of Treatment Once a Day Treatment Plan Physical Therapy Treatment Plan Bed Mobility Training,Transfer Training,Gait Training, Therapeutic Exercise,Balance Retraining,Discharge Planning, Hot or Cold Pack,Neuromuscular Re-ed,Coordination Retraining Precautions Other Precautions falls risk Recommendations To Nursing Amount of Assist Needed Standby Assistance,1 Person Assist Discharge Recommendations PT Discharge Recommendations Home with 24/7 Assist Available,SNF Rehab,Home vs SNF Transportation Needs at Discharge Private Vehicle
[2022-12-21 12:00] VITALS: BP 105/71; PULSE 116; RESP 19; TEMP 36.3; O2SAT 94; O2SAT 95
--- NOTE | 2022-12-21 12:10 | PM.DS.1 ---
History of Present Illness History of Present Illness Date Patient Seen: 12/17/22 Time Patient Seen: 20:00 Chief complaint: ETOH Narrative: Mr. Nunn is a 62M with PMH Etoh abuse with history of withdrawals, seizure disorder, DVT, CVA who presents requesting detox. He is confused and has noted dysarthria, which he states is chronic for him. He states he has drank for his whole life. He drinks 750cc vodka in 2-3 days, last drink this morning. He last was sober for a prolonged period of time a few years ago. However he also been generally feeling unwell with weakness and falls. Otherwise he denies vomiting, diarrhea, cough, shortness of breath, abdominal pain. In the ED workup was done, vitals notable for afebrible, heart rate 100s, blood pressure 60s/40s, sats 95% on room air, transiently was hypoxic while hypotensive. Labs reviewed by me and notable for WBC 3.9, hgb 13.1, plts 276. Na 142, k 3.3, creatinine 0.63. Lactate 5.2->2.5. Mag 1.5. AST/ALT 70/36, bili 0.3. UA negative. Drug screen negative. EtOH 407. Ketones 0.11. CT head showed small chronic vs subacute left frontal infarct. Chest xray reviewed by me and showed no acute process. Ct abdomen showed thickening of the right colon of unclear etiology. He was ordered for antibiotics, IV fluids and thiamine. He had R IJ placed. He responded well to fluids with improvement in his blood pressure and was admitted for further treatment. 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 Acute metabolic encephalopathy, resolved -etiology is intoxication vs wernickes vs cva vs infectious vs postictal -suspect most likely is intoxication / alcohol withdrawal -monitor neuro status as patient reena up and withdrawal clears -ordered high dose thiamine to treat/prevent wernickes, will continue -suspect less likely acute cva, or seizure or infectious -PT cleared for home with 3. Lactate acidosis, resolved -presented with lactate of over 5 -secondary to seizure vs sepsis vs thiamine deficiency vs hypovolemia -improved with treatment with fluids and thiamine and antibiotics -suspect patient is probably very hypovolemic with continued alcohol abuse -think this is less likely seizure but can not rule out -lactate resolved to normal 3. Possible colitis -CT showed thickened colon wall -ordered for stool studies, they were negative -currently having minimal symptoms, with no diarrhea -could be possible source of SIRS and hypotension, however with no symptoms will stop and continue to monitor. 4. EtoH withdrawal -presented with EtOH level > 400 -initially wanted detox, but now wants to go home -ordered for benzos per [facility] protocol -ordered MVI, thiamine, folate -started librium 5/ AM for withdrawal treatment, currently 50 mg TID. -dc home on librium taper and naltrexone 50mg daily to reduce future alcohol cravings 5. Seizuire disorder -continue lamotrigine 6. Depression -continue buspar 7. History of DVT -continue eliquis 8. History of CVA -suspect CT head findings are old -consider MRI for further evaluation, if as he reena up there is more evidence of acute neurologic change Hospital Course: 62 year old male, presented for detox was found to be hypotensive. He responded to fluid boluses, initially placed on antibiotics for possible sepsis though this appears less likely. Antibiotics were stopped, patient developed worsening withdrawal placed on librium and IV ativan. This improved and he was able to dc home with librium taper. Also put on daily naltrexone which patient agreed to try to reduce alcohol cravings. He will try to get into AA meetings. Home health arranged. Time Spent with Patient Time spent: Greater than 30 minutes Exam Vital Signs (past 8 hours): - 12/21/22 08:00 12/21/22 08:00 12/21/22 12:00 Temperature 97.4 F L Pulse Rate 111 H Respiratory Rate 17 Blood Pressure 137/81 Pulse Oximetry 96 97 94 Oxygen Delivery Method Room Air Room Air Oxygen Flow Rate 0 Oxygen Delivery Method Room Air Oxygen Flow Rate 0 Narrative Exam Narrative: GEN: chronically ill appearing HEENT: dry mucous membranes CV: RRR, no murmurs PULM: clear bilaterally ABD: soft, nontender, nondistended, no organomegaly EXT: warm and well perfused with no edema NEURO: dysarthria, no other focal deficits noted, + tremors Objective Labs 12/21/22 04:10 12/21/22 04:10 Labs: Laboratory Results - last 24 hr 12/21/22 12/21/22 04:10 04:10 WBC 4.7 RBC 3.81 L Hgb 13.0 L Hct 37.9 L MCV 99.6 MCH 34.1 H MCHC 34.2 RDW 14.3 Plt Count 221 Neut % (Auto) 66.1 Lymph % (Auto) 22.0 L [place] % (Auto) 6.6 Eos % (Auto) 3.8 Baso % (Auto) 1.5 Neut # (Auto) 3100 Lymph # (Auto) 1000 L [place] # (Auto) 300 Eos # (Auto) 200 Baso # (Auto) 100 Sodium 136 L Potassium 4.0 Chloride 105 Carbon Dioxide 28 BUN 3 L Creatinine 0.55 L Estimated GFR > 60 BUN/Creatinine Ratio 5.5 L Glucose 91 Calcium 8.6 Magnesium 1.8 Total Bilirubin 0.6 AST 44 ALT 28 Alkaline Phosphatase 96 Total Protein 6.0 L Albumin 3.4 L Globulin 2.6 Albumin/Globulin Ratio 1.3 PFSH Medical History Alcohol abuse Alcohol withdrawal syndrome, with delirium Anxiety Anxiety disorder Aphasia Apical mural thrombus Arrhythmia Bilateral pulmonary embolism Bipolar depression Chronic back pain Chronic neck pain Colonic polyp Dilated cardiomyopathy DVT (deep venous thrombosis) Essential hypertension GERD (gastroesophageal reflux disease) H/O ischemic left MCA stroke History of alcohol use History of CVA with residual deficit HTN (hypertension) Hyperlipidemia Insomnia Ischemic cardiomyopathy Lactic acidosis Major depression in remission [place] (myocardial infarction) Peripheral blood vessel disorder Peripheral edema Reactive airway disease Seizure disorder Smoking Surgical History AICD (automatic cardioverter/defibrillator) present History of coronary artery stent placement No history of major surgery within 1 month Family History Mother Alcoholism and drug addiction in family Father Old age Social History household members: none Smoking Status: Current every day smoker alcohol intake: current Discharge Plan Discharge Plan Patient Disposition: Home Health Service Provider Discharge Comment: You were admitted for alcohol withdrawals. This improved with medications. You will now be on a taper of librium to prevent further withdrawals. I've also started a daily medication which will help prevent future alcohol cravings. Discharge orders & Medications Prescriptions: New chlordiazepoxide HCl 25 mg capsule See Rx Instructions .ROUTE .COMPLEX Qty: 6 0RF Rx Instructions: 25 mg orally 3 times daily for 1 day, then 25mg twice daily for 1 day, then 25mg once daily for 1 day then stop naltrexone 50 mg tablet 50 mg PO DAILY Qty: 30 0RF Continued atenolol 25 mg tablet 25 mg PO BID atorvastatin 40 mg tablet 40 mg PO DAILY fluoxetine 10 mg capsule 10 mg PO DAILY buspirone 10 mg tablet 10 mg PO TID lamotrigine 200 mg tablet 200 mg PO BID cetirizine 10 mg tablet 10 mg PO DAILY trazodone 100 mg tablet 200 mg PO BEDTIME omeprazole 20 mg capsule,delayed release(DR/EC) 20 mg PO 0600 lisinopril 5 mg tablet 5 mg PO DAILY albuterol 90 mcg/actuation Aerosol 180 mcg INHALATION Q4HR PRN (Reason: Wheezing) polyethylene glycol 3350 17 gram/dose powder 17 g PO DAILY PRN (Reason: Constipation) Vitamin Plus Low Iron 27 mg iron- 1 mg tablet 1 tab PO DAILY Eliquis 5 mg tablet 5 mg PO BID Visit Report/Discharge Packet Instructions: Chlordiazepoxide, Naltrexone Stand Alone Forms: Patient Portal/API, Stroke Signs & Symptoms
--- NOTE | 2022-12-21 13:38 | CM.DPNOTE ---
Addendum entered by Shelly Gann SOLID TIRE FINISHER 12/22/22 10:50: ADD: DC Summary faxed to [facility] Addendum entered by Shelly Gann, [facility] 12/22/22 10:48: ADD: [facility] denied this referral stating they could not accept addtl. [facility] recipients. Placed call to [facility], Linda. Asked that patient be seen and she confirmed patient was on the schedule for MondayDecember 27 and that caregiver Isrrael had been contacted already to update on patient's scheduled visit JW Original Note: DC Note No SNF secured today. PT reports patient doing better and able to ambulate down the hansen with a walker. Home w/assist vs SNF recommended Met w/patient to review DCP; patient would like to return home and asks that coordination for this plan be done with caregiver Isrrael P [phone]. Patient tells this [employer] FINISHER he never sees his daughter Greta. Discussed senior care care plan and patient says he wants to remain independent for as long as possible. Patient agreeable to Home w/his HU caregivers and home health services- no agency preference. Referral already sent to [facility] so placed call- [facility] does not have PT availability until next week. Requested that FERNANDA Angeles, contact [facility] to get soonest availability for PT - awaiting feedback Meanwhile, according to conversation w/Isrrael, patient has a new caregiver that can start this afternoon and will be able to meet patient at his home at 1600. Isrrael will be in patient's home for assist tomorrow Patient concerned about the 19 stairs he has to get into his apt and states he is on the list for a ground level apt however housing is very minimal right now. Discussed BLS transport, likely covered by his [facility] insurance but not guaranteed coverage, patient aware and agreeable. BLS transport scheduled for 1530 pickle maker, BLS form completed and signed by Dr Lyon Updated VIVI Glaser and patient throughout the day Plan: Discharge home this afternoon via BLS transport, p/u at 1530, caregiver to meet patient at his home, likely [facility] services for PT/OT/VIVI VELAZQUEZ
--- NOTE | 2022-12-21 14:05 | OT.IPNOTE ---
Attempted OT eval and pt refused. Pt just wanting to rest more prior to going home. Pt states his main fear is falling at home. When asking pt why he thinks he falls, pt states because he drinks too much and that his cat gets under his feet all the time. Able to suggest pt to get a hand held shower spray for home- pt states to think about it. Pt has caregivers that assist with showers, dressing , and IADL needs at home. NO charge.
== END 2022-12-21 15:43 | disposition home health service (06) | DRG 896 ==
LOC: ED 16:18 → AC 20:37 → ICU 22:38
PROVIDERS: Internal Medicine; Admitting Provider Internal Medicine; Emergency Provider Emergency Medicine; Referring Provider Emergency Medicine; Visit Provider Internal Medicine
DX: F10.139 Alcohol abuse with withdrawal, unspecified (principal); G93.41 Metabolic encephalopathy; E87.20 Acidosis, unspecified; I95.9 Hypotension, unspecified; G40.909 Epilepsy, unspecified, not intractable, without status epilepticus; F32.A Depression, unspecified; K52.9 Noninfective gastroenteritis and colitis, unspecified; I10 Essential (primary) hypertension; E78.5 Hyperlipidemia, unspecified; K21.9 Gastro-esophageal reflux disease without esophagitis; F17.200 Nicotine dependence, unspecified, uncomplicated; Y90.8 Blood alcohol level of 240 mg/100 ml or more; Z86.73 Personal history of transient ischemic attack (TIA), and cerebral infarction without residual deficits; Z86.718 Personal history of other venous thrombosis and embolism; Z79.01 Long term (current) use of anticoagulants; Z20.822 Contact with and (suspected) exposure to COVID-19
CPT/HCPCS: 36415; 70450; 71045; 71275; 74174; 80048; 80053; 80305; 80320; 80329; 81003; 81015; 82009; 82550; 82553; 83605; 83735; 84484; 85025; 85610; 87040; 87045; 87635; 87797; 87899; 93005; 96365; 96368; 97116; 97162; 97530; 99285; C9803; G0480; J0696; J2060; J2185; J2405; J3475; Q9967